=== PATIENT | female | born 1985 | race Caucasian/White ===

== ENCOUNTER 2017-02-05 14:30 | Emergency (ER) | payer OTHER ==
--- NOTE | 2017-02-05 16:07 | ER Document Report ---
ED Medical Screen (RME) - General Chief Complaint: Abdominal Pain Stated Complaint: SEVERE ABDOMINAL PAIN Time Seen by Provider: 02/05/17 16:05 Notes: Patient has bilateral upper abdominal pain with nausea as well as significant coughing for several days. TRAVEL OUTSIDE OF THE [place] IN LAST 30 DAYS: No - Related Data Allergies/Adverse Reactions: Sulfa (Sulfonamide Antibiotics) Allergy (Intermediate, Verified 02/05/17 14:34) rash Iodinated Contrast- Oral and IV Dye [IV Dye, Iodine Containing] Allergy ( Verified 02/05/17 14:34) Past Medical History - Social History Chew tobacco use (# tins/day): No Frequency of alcohol use: Occasional Drug Abuse: None Family history: Reviewed & Not Pertinent Pulmonary Medical History: Reports: Hx Asthma Renal/ Medical History: Denies: Hx Peritoneal Dialysis Psychiatric Medical History: Reports: Hx Anxiety, Hx Depression - anger issues Past Surgical History: Reports: Hx Breast Surgery - implants, Hx Oral Surgery, Hx Tonsillectomy - Immunizations Immunizations up to date: Yes Hx Diphtheria, Pertussis, Tetanus Vaccination: Yes Physical Exam - Vital signs Vitals: Temp Pulse Resp BP Pulse Ox 97.9 F 85 18 117/77 98 02/05/17 14:36 02/05/17 14:36 02/05/17 14:36 02/05/17 14:36 02/05/17 14:36 Course - Vital Signs Vital signs: Temp Pulse Resp BP Pulse Ox 97.9 F 85 18 117/77 98 02/05/17 14:36 02/05/17 14:36 02/05/17 14:36 02/05/17 14:36 02/05/17 14:36
[2017-02-05 16:37] LABS: ABSOLUTE EOSINOPHILS # (AUTO) 0.6 10^3/uL (0.0-0.6); ABSOLUTE MONOCYTES (AUTO) 0.4 10^3/uL (0.1-1.4); ABSOLUTE NEUT (AUTO) 6.6 10^3/uL (1.7-8.2); BASOPHILS % (AUTO) 0.3 % (0-2); EOSINOPHILS % (AUTO) 6.6 % (0-6); HEMATOCRIT 39.1 % (36.0-47.0); HEMOGLOBIN 13.6 g/dL (12.0-15.5); HGB HCT DIFFERENCE 1.7; LYMPHOCYTES % (AUTO) 11.9 % (13-45); MEAN CORPUSCULAR HEMOGLOBIN 31.1 pg (27.0-33.4); MEAN CORPUSCULAR HGB CONC 34.8 g/dL (32.0-36.0); MEAN CORPUSCULAR VOLUME 89 fl (80-97); MONOCYTES % (AUTO) 4.6 % (3-13); RED BLOOD COUNT 4.37 10^6/uL (3.72-5.28); RED CELL DISTRIBUTION WIDTH 12.9 % (11.5-14.0); SEGMENTED NEUTROPHILS % (AUTO) 76.6 % (42-78); WHITE BLOOD COUNT 8.6 10^3/uL (4.0-10.5)
[2017-02-05 16:51] LABS: APPEARANCE,URINE CLEAR; BILIRUBIN,URINE NEGATIVE (NEGATIVE); GLUCOSE, URINE NEGATIVE (NEGATIVE); KETONES,URINE NEGATIVE (NEGATIVE); LEUKOCYTE ESTERASE,URINE NEGATIVE (NEGATIVE); NITRITE,URINE NEGATIVE (NEGATIVE); PROTEIN,URINE NEGATIVE (NEGATIVE); URINE SPECIFIC GRAVITY 1.016; UROBILINOGEN,URINE NEGATIVE mg/dL (<2.0)
[2017-02-05 16:52] LABS: ALANINE AMINOTRANSFERASE 27 U/L (9-52); ALBUMIN 4.5 g/dL (3.5-5.0); ALKALINE PHOSPHATASE 44 U/L (38-126); ANION GAP 13 (5-19); ASPARTATE AMINO TRANSFERASE 19 U/L (14-36); BILIRUBIN,DIRECT 0.3 mg/dL (0.0-0.4); BILIRUBIN,TOTAL 1.2 mg/dL (0.2-1.3); BLOOD UREA NITROGEN 11 mg/dL (7-20); CALCIUM 9.2 mg/dL (8.4-10.2); CARBON DIOXIDE 26 mmol/L (22-30); CHLORIDE 106 mmol/L (98-107); CREATININE RESULT 0.78 mg/dL (0.52-1.25); GLUCOSE 129 mg/dL (75-110); LIPASE 160.1 U/L (23-300); POTASSIUM 3.7 mmol/L (3.6-5.0); SODIUM 144.5 mmol/L (137-145)
--- NOTE | 2017-02-05 17:29 | ER Document Report ---
ED General - General Chief Complaint: Abdominal Pain Stated Complaint: SEVERE ABDOMINAL PAIN Time Seen by Provider: 02/05/17 16:05 TRAVEL OUTSIDE OF THE [place] IN LAST 30 DAYS: No - HPI Notes: Patient is a 31-year-old female with a history of asthma who presents the ED complaining of a dry nonproductive cough 1 month, epigastric abdominal soreness x 1 day. Pt states that she was having n/v yesterday constantly, but that has since resolved. Pt states that she is eating/drinking w/o any difficulties. Pt states that food intake does not alter her symptoms. Pt is currently on several inhalers and PO meds specifically for her asthma. Pt is currently on her menstrual cycle and denies any other vaginal odor/discharge. She is still urinating normally and having normal BM's. Denies any prolonged travel, immobilization, hormone use, smoking, iv drugs, injury, prev dvt/PE, or any cardiac history. Denies any headache, fever, neck pain, URI, sore throat, chest pain, palpitations, syncope, shortness of breath, wheeze, dyspnea, diarrhea, urinary retention, dysuria, hematuria, back pain, joint pains, or rash. - Related Data Allergies/Adverse Reactions: Sulfa (Sulfonamide Antibiotics) Allergy (Intermediate, Verified 02/05/17 14:34) rash Iodinated Contrast- Oral and IV Dye [IV Dye, Iodine Containing] Allergy ( Verified 02/05/17 14:34) Past Medical History - Social History Smoking Status: Never Smoker Chew tobacco use (# tins/day): No Frequency of alcohol use: Occasional Drug Abuse: None Family History: Reviewed & Not Pertinent Patient has suicidal ideation: No Patient has homicidal ideation: No Pulmonary Medical History: Reports: Hx Asthma Renal/ Medical History: Denies: Hx Peritoneal Dialysis Psychiatric Medical History: Reports: Hx Anxiety, Hx Depression - anger issues Past Surgical History: Reports: Hx Breast Surgery - implants, Hx Oral Surgery, Hx Tonsillectomy - Immunizations Immunizations up to date: Yes Hx Diphtheria, Pertussis, Tetanus Vaccination: Yes Review of Systems - Review of Systems Notes: REVIEW OF SYSTEMS: CONSTITUTIONAL : Denies fever, chills, or sweats. see hpi. EENT: Denies eye, ear, throat, or mouth pain or symptoms. Denies nasal or sinus congestion or discharge. Denies throat, tongue, or mouth swelling or difficulty swallowing. CARDIOVASCULAR: Denies chest pain. Denies palpitations or racing or irregular heart beat. Denies ankle edema. RESPIRATORY: see hpi. Denies shortness of breath, difficulty breathing, or wheezing. GASTROINTESTINAL: see hpi. Denies blood in vomitus, stools, or per rectum. Denies black, tarry stools. Denies constipation. GENITOURINARY: Denies difficulty urinating, painful urination, burning, frequency, blood in urine, or discharge. MUSCULOSKELETAL: Denies back or neck pain or stiffness. Denies joint pain or swelling. SKIN: Denies rash, lesions or sores. NEUROLOGICAL: Denies confusion or altered mental status. Denies passing out or loss of consciousness. Denies dizziness or lightheadedness. Denies headache. Denies weakness or paralysis or loss of use of either side. Denies problems with gait or speech. Denies sensory loss, numbness, or tingling. ALL OTHER SYSTEMS REVIEWED AND NEGATIVE. Dictation was performed using [employer] voice recognition software Physical Exam - Vital signs Vitals: Temp Pulse Resp BP Pulse Ox 97.9 F 85 18 117/77 98 02/05/17 14:36 02/05/17 14:36 02/05/17 14:36 02/05/17 14:36 02/05/17 14:36 Notes: PHYSICAL EXAMINATION: GENERAL: Well-appearing, well-nourished and in no acute distress. A&Ox4. Pt pleasant and talkative. HEAD: Atraumatic, normocephalic. EYES: Pupils equal round and reactive to light, extraocular movements intact, sclera anicteric, conjunctiva are normal. ENT: Nares patent and without discharge. oropharynx clear without exudates. No tonsilar hypertrophy or erythema. Moist mucous membranes. No sinus tenderness. NECK: Normal range of motion, supple without lymphadenopathy. No rigidity/ meningismus. LUNGS: Breath sounds clear to auscultation bilaterally and equal. No wheezes rales or rhonchi. HEART: Regular rate and rhythm without murmurs, rubs, gallops. ABDOMEN: Soft, nondistended abdomen. No guarding, no rebound. No masses appreciated. Normal bowel sounds present. No CVA tenderness bilaterally. + mild epigastric tenderness to palp. Zimmerman negative. Musculoskeletal: FROM to passive/active. Strength 5+/5. Extremities: No cyanosis, clubbing, or edema b/l. Peripheral pulses 2+. Capillary refill less than 3 seconds. NEUROLOGICAL: Normal speech, normal gait. Normal sensory, motor exams PSYCH: Normal mood, normal affect. SKIN: Warm, Dry, normal turgor, no rashes or lesions noted. Course - Re-evaluation Re-evalutation: 02/05/17 18:11 Patient is an afebrile, well-hydrated, 31-year-old female who presents the ED with epigastric pain, suspect gastritis versus GERD as well as acute bronchitis. Vitals are stable. PE is otherwise unremarkable. Patient is tolerating p.o. without any difficulties. CBC, CMP, urinalysis, lipase, and was unremarkable for any acute pathology. Chest x-ray and right upper quadrant ultrasound was unremarkable for any acute pathology. Patient has been having a cough for about 1 month now. I will send her home with a pocket prescription of zithromax that she may start if no improvement in 2-3 days. I will also send her home with prescription for Tessalon to help with the cough. GI cocktail given today. I will send her home with a prescription for omeprazole. Conservative measures for symptoms otherwise. Recheck with your PCM in 3-5 days. Consider consult with gastroenterology. Low suspicion for any acute abdomen at this time as well as sepsis, meningitis, respiratory compromise. Return to the ED with any worsening/concerning symptoms otherwise as reviewed in discharge. Patient is in agreement. - Vital Signs Vital signs: Temp Pulse Resp BP Pulse Ox 97.9 F 85 18 117/77 98 02/05/17 14:36 02/05/17 14:36 02/05/17 14:36 02/05/17 14:36 02/05/17 14:36 - Laboratory Result Diagrams: 02/05/17 16:28 02/05/17 16:28 Laboratory results interpreted by me: 02/05/17 02/05/17 02/05/17 16:15 16:28 16:28 Lymphocytes % 11.9 L Eosinophils % 6.6 H Glucose 129 H Urine Blood LARGE H Discharge - Discharge Clinical Impression: Epigastric pain Acute bronchitis Qualifiers: Bronchitis organism: unspecified organism Qualified Code(s): J20.9 - Acute bronchitis, unspecified Condition: Stable Disposition: HOME, SELF-CARE Instructions: Abdominal Pain ([facility]), Evaluation of Upper Abdominal Pain ([facility]), Bronchitis ([facility]), Low-Fat Diet ([facility]), Antinausea Medication ([facility]) Additional Instructions: Maintain adequate fluid and food intake [place] diet ([employer] Bananas, rice, apples, toast, etc Zofran as needed tylenol if needed OTC meds as needed for cold symptoms/cough Monitor for any worsening symptoms Make sure you are staying hydrated enough to urinate and have normal BM's Recheck with your PCM in 3-5 days Consider consult with Gastroenterology for ongoing/worsening symptoms Return to the ED with any worsening symptoms and/or development of fever, headache, chest pain, palpitations, syncope, shortness of breath, trouble breathing, abdominal pain, n/v/d, blood in stool/urine, weakness, or other worsening symptoms that are concerning to you. Prescriptions: Benzonatate [Tessalon Perle 100 mg Capsule] 100 mg PO Q8HP PRN #15 cap PRN Reason: Azithromycin [Zithromax 250 mg Tablet] 250 mg PO ASDIR PRN #6 tablet PRN Reason: Meclizine HCl 25 mg PO TID #15 tablet Omeprazole 20 mg PO DAILY #30 tablet. Referrals: [facility] [Provider Group] - Follow up as needed [facility] [Provider Group] - Follow up as needed NANCY TOM MD [ACTIVE STAFF] - Follow up as needed
--- NOTE | 2017-02-05 18:01 | RADIOLOGY REPORT (SQ) ---
EXAM DESCRIPTION: CHEST PA/LAT COMPLETED DATE/TIME: 02/05/2017 5:53 pm REASON FOR STUDY: cough COMPARISON: 09/21/2012 EXAM PARAMETERS: NUMBER OF VIEWS: two views TECHNIQUE: Digital Frontal and Lateral radiographic views of the chest acquired. RADIATION DOSE: NA LIMITATIONS: none FINDINGS: LUNGS AND PLEURA: No opacities, masses or pneumothorax. No pleural effusion. MEDIASTINUM AND HILAR STRUCTURES: No masses or contour abnormalities. HEART AND VASCULAR STRUCTURES: Heart normal size. No evidence for failure. BONES: No acute findings. HARDWARE: None in the chest. OTHER: No other significant finding. IMPRESSION: NO SIGNIFICANT RADIOGRAPHIC FINDING IN THE CHEST. TECHNICAL DOCUMENTATION: JOB ID: [id number] [employer]- All Rights Reserved
--- NOTE | 2017-02-05 18:05 | RADIOLOGY REPORT (SQ) ---
EXAM DESCRIPTION: U/S ABDOMEN LIMITED W/O DOP COMPLETED DATE/TIME: 02/05/2017 5:47 pm REASON FOR STUDY: epigastric pain COMPARISON: None. TECHNIQUE: Dynamic and static grayscale images acquired of the liver and recorded on PACS. Eliu guadarrama selected color Doppler and spectral images recorded. Selected velocities recorded. LIMITATIONS: None. FINDINGS: LIVER: Normal in echogenicity and size. No focal lesions are seen. LIVER VASCULATURE: Normal directional flow of the main portal vein and hepatic veins. The IVC is pat ent. GALLBLADDER: No stones. Normal wall thickness. No pericholecystic fluid. ULTRASOUND-DETECTED GALDAMEZ'S SIGN: Negative. INTRAHEPATIC DUCTS AND COMMON DUCT: No dilated intrahepatic ducts. CBD diameter normal. ASCITES: None. OTHER: Visualized portion of pancreas unremarkable. No hydronephrosis of the right kidney. IMPRESSION: Nothing acute. No evidence for gallstones. TECHNICAL DOCUMENTATION: JOB ID: [id number] [employer]- All Rights Reserved
[2017-02-05] MEDS ORDERED: METOCLOPRAMIDE HCL ORAL SOLN 10 MG/10 ML UDCUP PO ONE (18:20)
[2017-02-05] MEDS ORDERED: LIDOCAINE 2% VISCOUS SOLN 20 ML UDCUP PO ONE (18:20)
[2017-02-05] MEDS ORDERED: MAG HYDROX/AL HYDROX/SIMETH SUSP 30 ML UDCUP PO ONE (18:20)
[2017-02-05 18:38] VITALS: BP 102/78
== END 2017-02-05 18:38 | disposition home or self-care (01) ==
LOC: ER 14:30
DX: J20.9 Acute bronchitis, unspecified (principal); R10.13 Epigastric pain; Z88.2 Allergy status to sulfonamides
CPT/HCPCS: 99284; 36415; 83690; 85025; 81025; 80053; 81001; 71020; 76705; J3490

== ENCOUNTER 2018-03-16 11:07 | Outpatient (CLI) | payer OTHER ==
[2018-03-16] MEDS ORDERED: HYDROXYZINE PAMOATE 50 MG CAPSULE PO ONE (11:52)
[2018-03-16] MEDS ORDERED: HYDROXYZINE PAMOATE 50 MG CAPSULE ONE (11:57)
[2018-03-16 11:58] LABS: APPEARANCE,URINE SLIGHTLY-CLOUDY; BILIRUBIN,URINE NEGATIVE (NEGATIVE); COLOR,URINE YELLOW; GLUCOSE, URINE NEGATIVE (NEGATIVE); KETONES,URINE NEGATIVE (NEGATIVE); LEUKOCYTE ESTERASE,URINE NEGATIVE (NEGATIVE); NITRITE,URINE NEGATIVE (NEGATIVE); PROTEIN,URINE NEGATIVE (NEGATIVE); UROBILINOGEN,URINE NEGATIVE mg/dL (<2.0)
--- NOTE | 2018-03-16 12:19 | Non Stress Test Report ---
Non Stress Test Datetime Report Generated by CPN: 03/16/2018 12:19 DEMOGRAPHIC EGA NST: 32.6 INDICATION Indication for Study: Ordered by Provider Indication for Study (NST) Other: UC's, pressure MONITORING Monitor Explained: Monitor Explained; Test Explained; Patient Verbalized Understanding Time on Monitor: 03/16/2018 11:28 NST INTERVENTIONS NST Interventions: PO Hydration BABY A: [id number] BABY A Movement : Present Contraction Frequency : irregular FHR Baseline : 140 Accelerations : 15X15 Decelerations : None Variability : Moderate 6-25bpm NST Review and Verified By : H. Myke, RN NST Results: Reactive NST REPORT Report Trigger: Send Report
[2018-03-16 12:21] LABS: URINE AMPHETAMINES SCREEN NEGATIVE; URINE BARBITURATES SCREEN NEGATIVE; URINE BENZODIAZEPINES SCREEN NEGATIVE; URINE COCAINE SCREEN NEGATIVE; URINE MARIJUANA (THC) SCREEN NEGATIVE; URINE METHADONE SCREEN NEGATIVE; URINE PHENCYCLIDINE SCREEN NEGATIVE
== END 2018-03-16 14:43 | disposition home or self-care (01) ==
LOC: LC 11:07
PROVIDERS: ATTEND Student in an Organized Health Care Education/Training Program
PROC: 4A1HXCZ Monitoring of Products of Conception, Cardiac Rate, External Approach (ICD-10-PCS; principal; 2018-03-16)
DX: O47.03 False labor before 37 completed weeks of gestation, third trimester (principal); Z3A.32 32 weeks gestation of pregnancy
CPT/HCPCS: 59025; 80307; 81001

== ENCOUNTER 2018-03-27 09:37 | Outpatient (CLI) | payer OTHER ==
[2018-03-27 10:27] LABS: APPEARANCE,URINE CLEAR; BILIRUBIN,URINE NEGATIVE (NEGATIVE); COLOR,URINE YELLOW; GLUCOSE, URINE NEGATIVE (NEGATIVE); KETONES,URINE NEGATIVE (NEGATIVE); LEUKOCYTE ESTERASE,URINE TRACE (NEGATIVE); NITRITE,URINE NEGATIVE (NEGATIVE); PROTEIN,URINE NEGATIVE (NEGATIVE); URINE SPECIFIC GRAVITY 1.011; UROBILINOGEN,URINE NEGATIVE mg/dL (<2.0)
[2018-03-27 10:44] LABS: URINE AMPHETAMINES SCREEN NEGATIVE; URINE BARBITURATES SCREEN NEGATIVE; URINE BENZODIAZEPINES SCREEN NEGATIVE; URINE COCAINE SCREEN NEGATIVE; URINE MARIJUANA (THC) SCREEN NEGATIVE; URINE METHADONE SCREEN NEGATIVE; URINE PHENCYCLIDINE SCREEN NEGATIVE
--- NOTE | 2018-03-27 11:35 | Non Stress Test Report ---
Non Stress Test Datetime Report Generated by CPN: 03/27/2018 11:35 DEMOGRAPHIC Test Number: 2 EGA NST: 34.5 INDICATION Indication for Study: labor VITAL SIGNS Temperature - NST: 98.2 Pulse - NST: 70 RESP - NST: 16 NBPSYS NST: 119 NBPDIA NST: 70 MONITORING Monitor Explained: Monitor Explained; Test Explained; Patient Verbalized Understanding Time on Monitor: 03/27/2018 09:30 Time off Monitor: 03/27/2018 11:20 NST Duration: 110 NST INTERVENTIONS NST Interventions: PO Hydration; IV Fluids BABY A: [id number] BABY A Movement : Present Contraction Frequency : 2-4 FHR Baseline : 130 Accelerations : 15X15 Decelerations : None Variability : Moderate 6-25bpm NST Review and Verified By : Soledad Gonzalez, RN NST REPORT Report Trigger: Send Report
== END 2018-03-27 11:43 | disposition home or self-care (01) ==
LOC: LC 09:37
PROVIDERS: ATTEND Obstetrics & Gynecology
DX: Z34.90 Encounter for supervision of normal pregnancy, unspecified, unspecified trimester (principal)
CPT/HCPCS: 59025; 80307; 81001

== ENCOUNTER 2018-04-07 15:31 | Outpatient (CLI) | payer OTHER ==
[2018-04-07 16:02] LABS: APPEARANCE,URINE SLIGHTLY-CLOUDY; BILIRUBIN,URINE NEGATIVE (NEGATIVE); COLOR,URINE YELLOW; GLUCOSE, URINE NEGATIVE (NEGATIVE); KETONES,URINE 20 mg/dL (NEGATIVE); LEUKOCYTE ESTERASE,URINE MODERATE (NEGATIVE); NITRITE,URINE NEGATIVE (NEGATIVE); PROTEIN,URINE 30 mg/dL (NEGATIVE); UROBILINOGEN,URINE NEGATIVE mg/dL (<2.0)
[2018-04-07 16:13] LABS: URINE AMPHETAMINES SCREEN NEGATIVE; URINE BARBITURATES SCREEN NEGATIVE; URINE BENZODIAZEPINES SCREEN NEGATIVE; URINE COCAINE SCREEN NEGATIVE; URINE MARIJUANA (THC) SCREEN NEGATIVE; URINE METHADONE SCREEN NEGATIVE; URINE PHENCYCLIDINE SCREEN NEGATIVE
== END 2018-04-07 16:20 | disposition home or self-care (01) ==
LOC: LC 15:31
PROVIDERS: ATTEND Student in an Organized Health Care Education/Training Program
PROC: 4A1HXCZ Monitoring of Products of Conception, Cardiac Rate, External Approach (ICD-10-PCS; principal; 2018-04-07)
DX: O47.03 False labor before 37 completed weeks of gestation, third trimester (principal); Z3A.36 36 weeks gestation of pregnancy
CPT/HCPCS: 59025; 80307; 81001

== ENCOUNTER 2018-04-16 21:44 | Inpatient (IN) | payer OTHER ==
--- NOTE | 2018-04-16 21:49 | Non Stress Test Report ---
Non Stress Test Datetime Report Generated by CPN: 04/16/2018 21:48 DEMOGRAPHIC EGA NST: 36.2 INDICATION Indication for Study: Ordered by Provider MONITORING Time on Monitor: 04/07/2018 15:48 Time off Monitor: 04/07/2018 16:10 NST Duration: 22 NST INTERVENTIONS NST Interventions: PO Hydration Physician Notified NST: K.Faith, CNM BABY A: [id number] BABY A Movement : Present Contraction Frequency : x1 FHR Baseline : 125 Accelerations : 15X15 Decelerations : None Variability : Moderate 6-25bpm NST Review: Meets Criteria for Reactive NST NST Review and Verified By : STEVE Jiménez Results: Reactive NST REPORT Report Trigger: Send Report
[2018-04-16 22:21] LABS: APPEARANCE,URINE CLEAR; BILIRUBIN,URINE NEGATIVE (NEGATIVE); COLOR,URINE COLORLESS; GLUCOSE, URINE NEGATIVE (NEGATIVE); KETONES,URINE NEGATIVE (NEGATIVE); LEUKOCYTE ESTERASE,URINE NEGATIVE (NEGATIVE); NITRITE,URINE NEGATIVE (NEGATIVE); PROTEIN,URINE NEGATIVE (NEGATIVE); URINE SPECIFIC GRAVITY 1.003; UROBILINOGEN,URINE NEGATIVE mg/dL (<2.0)
[2018-04-16 22:42] LABS: URINE AMPHETAMINES SCREEN NEGATIVE; URINE BARBITURATES SCREEN NEGATIVE; URINE BENZODIAZEPINES SCREEN NEGATIVE; URINE COCAINE SCREEN NEGATIVE; URINE MARIJUANA (THC) SCREEN NEGATIVE; URINE METHADONE SCREEN NEGATIVE; URINE PHENCYCLIDINE SCREEN NEGATIVE
[2018-04-17] MEDS ORDERED: LIDOCAINE 1% INJ-PF (10 MG/ML) 30 ML SDV ONE (01:04)
[2018-04-17] MEDS ORDERED: OXYTOCIN 10 UNIT/ML VIAL ONE (01:04)
[2018-04-17] MEDS ORDERED: MISOPROSTOL 0.2 MG TABLET ONE (01:04)
[2018-04-17] MEDS ORDERED: OXYTOCIN/NORMAL SALINE 20 UNIT/1,000 ML RTUINJ ONE (01:04)
[2018-04-17 01:18] LABS: ABSOLUTE BASOPHILS # (AUTO) 0.1 10^3/uL (0.0-0.2); ABSOLUTE EOSINOPHILS # (AUTO) 0.3 10^3/uL (0.0-0.6); ABSOLUTE LYMPHOCYTES (AUTO) 1.5 10^3/uL (0.5-4.7); ABSOLUTE MONOCYTES (AUTO) 0.7 10^3/uL (0.1-1.4); ABSOLUTE NEUT (AUTO) 6.2 10^3/uL (1.7-8.2); BASOPHILS % (AUTO) 0.6 % (0-2); EOSINOPHILS % (AUTO) 3.2 % (0-6); HEMATOCRIT 35.9 % (36.0-47.0); HEMOGLOBIN 12.7 g/dL (12.0-15.5); LYMPHOCYTES % (AUTO) 17.5 % (13-45); MEAN CORPUSCULAR HEMOGLOBIN 33.2 pg (27.0-33.4); MEAN CORPUSCULAR HGB CONC 35.5 g/dL (32.0-36.0); MEAN CORPUSCULAR VOLUME 94 fl (80-97); MONOCYTES % (AUTO) 7.9 % (3-13); PLATELET COUNT 181 10^3/uL (150-450); RED BLOOD COUNT 3.85 10^6/uL (3.72-5.28); RED CELL DISTRIBUTION WIDTH 13.5 % (11.5-14.0); SEGMENTED NEUTROPHILS % (AUTO) 70.8 % (42-78); TOTAL CELLS COUNTED % (AUTO) 100 %; WHITE BLOOD COUNT 8.8 10^3/uL (4.0-10.5)
--- NOTE | 2018-04-17 02:33 | Admission Physical ---
Datetime Report Generated by CPN: 04/17/2018 02:32 CURRENT ADMISSION Chief Complaint: Uterine Contractions Indication for Induction: Not Applicable Admit Impression : Term, Intrauterine ; Active Labor Admit Plan: Admit to Unit; Initiate Labor Protocol ALLERGIES Medication Allergies: Yes Medication Allergies: Iodinated Contrast- Oral and IV Dye (04/16/2018); Sulfa (Sulfonamide Antibiotics)/MO/rash (04/16/2018); aspirin (04/16/2018); ibuprofen (04/16/2018) Latex: No Latex Allergies Food Allergies: red onion OBSTETRICAL HISTORY EDC: 05/03/2018 00:00 : 2 Para: 1 Term: 1 : 0 SAB: 0 IAB: 0 Ectopic: 0 Livin Cesareans: 0 VBACs: 0 Multiple Births: 0 Gestational Diabetes: Yes Rh Sensitization: No Incompetent Cervix: No NOEMI: No Infertility: No ART Treatment: No Uterine Anomaly: No IUGR: No Hx Previous C/S: No Macrosomia: No Hx Loss/Stillborn: No PIH: No Hx : No Placenta Previa/Abruption: No Depression/PP Depression: No PTL/PROM: No Post Hemorrhage: No Current Procedures: Ultrasound Obstetrical History Comments: G1- term G2- current , GDM diet controlled SEE RECORDS Alcohol: No Marijuana : No Cocaine: No Other Illicit Drugs: No Cigarettes: Never Smoker. 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 degenerative disc disease and arthritis in back. INFECTIOUS HISTORY Gonorrhea: No Genital Herpes: No Chlamydia: No Tuberculosis: No Syphilis: No Hepatitis: No HIV/AIDS Exposure: No Rash or Viral Illness: No HPV: No PHYSICAL EXAM General: Normal HEENT: Normal Neurologic: Normal Thyroid: Normal Heart: Normal Lungs: Normal Breast: Deferred Back: Normal Abdomen: Normal Genitourinary Exam: Normal Extremities: Normal DTRs: Normal Pelvic Type: Adequate Vital Signs: Reviewed VAGINAL EXAM Dilatation: 4 Effacement: 50 Station: -2 MEMBRANES Pooling: Negative Membranes: Intact FETUS A EGA: 37.5 Monitoring: External US FHR- Baseline: 120 Variability: Moderate 6-25bpm Decelerations: None FHR Category: Category I Presentation: Vertex Admit Comment: anticipate delivery PLANS FOR LABOR AND DELIVERY Labor and Delivery: None Pain Management: Natural Feeding Preference: Breast Benefit of Breast Feed Discussed: Yes Circumcision: Yes INFORMED CONSENT Signature: with User ID: [email or web address]
[2018-04-17] MEDS ORDERED: ONDANSETRON 4 MG TAB.RAPDIS ONE (03:00)
[2018-04-17] MEDS ORDERED: ONDANSETRON 4 MG TAB.RAPDIS PO ONE (03:01)
[2018-04-17] MEDS ORDERED: ONDANSETRON HCL INJ/PF 4 MG/2 ML SDV ONE (07:21)
--- NOTE | 2018-04-17 08:09 | L&D Progress Notes ---
PROGRESS NOTES Datetime Report Generated by CPN: 04/17/2018 08:09 PROGRESS NOTE Impression: Reassuring Heart Rate Plan: Continue Present Management Informed Consent Obtained: Vaginal Delivery Vital Signs : Reviewed; Within Normal Limits Comment: Cat 1 strip, ruptured, comfortable, does not want epidural VAGINAL EXAM Dilatation: 4 Effacement: 50 Station: -2 LAST VAGINAL EXAM-NURSING Dilitation: 4.0 Dilitation: 5.0 Dilitation: 4.0 Dilitation: 4.0 Dilitation: 2.0 Dilitation: cl Dilitation: closed Dilitation: ft Dilitation: ft Effacement: 80 Effacement: 70 Effacement: 50 Effacement: 50 Effacement: 25 Effacement: th Effacement: 50 Effacement: thick Effacement: thick Station: 0 Station: -2 Station: -2 Station: -2 Station: -1 Station: ballotable Station: ballotable Station: ballotable MEMBRANES Pooling: Negative Membranes: Intact FETUS A Monitoring: External US FHR Category: Category I : 37.0 Presentation: Vertex SIGNATURE SIGNATURE: [id number];[id number];13,[id number] SIGNATURE: [id number];14,[id number] SIGNATURE: 14,[id number] SIGNATURE: 14,[id number] SIGNATURE: 14,[id number] Assignment: Frank Gongora MD Signature: with User ID: [email or web address] : with User ID: [email or web address]
[2018-04-17] MEDS ORDERED: ACETAMINOPHEN 325 MG TABLET ONE (11:19)
[2018-04-17] MEDS ORDERED: PROMETHAZINE HCL 25 MG TABLET PO PRN (11:23)
[2018-04-17] MEDS ORDERED: PROMETHAZINE HCL INJ 25 MG/1 ML VIAL IV PRN (11:23)
[2018-04-17] MEDS ORDERED: DIPH/PERTUSS(ACELL)/TETANUS VAC/PF 0.5 ML SYR (>=10YO) IM PRN (11:23)
[2018-04-17] MEDS ORDERED: DIPHENHYDRAMINE HCL 25 MG CAPSULE PO PRN (11:23)
[2018-04-17] MEDS ORDERED: MEASLES,MUMPS&RUBELLA VACC/PF 0.5 ML VIAL SUBCUT PRN (11:23)
[2018-04-17] MEDS ORDERED: MISOPROSTOL 0.2 MG TABLET PR PRN (11:23)
[2018-04-17] MEDS ORDERED: OXYTOCIN/NORMAL SALINE 20 UNIT/1,000 ML RTUINJ IV PRN (11:23)
[2018-04-17] MEDS ORDERED: MAGNESIUM HYDROXIDE SUSP 30 ML UDCUP PO PRN (11:23)
[2018-04-17] MEDS ORDERED: NA PHOS,M-B/NA PHOS,DI-BA (ADULT) 133 ML ENEMA PR PRN (11:23)
[2018-04-17] MEDS ORDERED: PSEUDOEPHEDRINE HCL 30 MG TABLET PO PRN (11:23)
[2018-04-17] MEDS ORDERED: PROMETHAZINE HCL 25 MG SUPP.RECT PR PRN (11:23)
[2018-04-17] MEDS ORDERED: BENZOCAINE/MENTHOL AEROSOL SPRAY 56 ML TOP PRN (11:23)
[2018-04-17] MEDS ORDERED: DIBUCAINE 1% OINTMENT 28 GM TP PRN (11:23)
[2018-04-17] MEDS ORDERED: ACETAMINOPHEN WITH CODEINE #3 TABLET PO PRN (11:23)
[2018-04-17] MEDS ORDERED: GLYCERIN/WITCH HAZEL LEAF 1 EACH MED..PAD TP PRN (11:23)
[2018-04-17] MEDS ORDERED: ACETAMINOPHEN 650 MG SUPP.RECT PR PRN (11:23)
[2018-04-17] MEDS ORDERED: ACETAMINOPHEN 325 MG TABLET PO PRN (11:26)
--- NOTE | 2018-04-17 13:10 | Delivery Summary ---
Del Sum A-C Datetime Report Generated by CPN: 04/17/2018 13:10 DELIVERY PERSONNEL DELIVERY PERSONNEL: [id number] Delivery Doctor:: Lakesha Wong CNM Nurse Label Printer Certified:: Lakesha Wong CNM Labor and Delivery Nurse:: Sweta Jefferson RNsheep boner Nurse:: KAVON Ndiaye Nursery Nurse:: STEVE Calix/ANGELO: Melinda Galdamez CNA II MATERNAL INFORMATION Delivery Anesthesia: None Medications After Delivery: Pitocin Drip 20 Units/1000ml NSS; Cytotec 600mcg Per Rectum/Vagina Meds After Delivery Comment: Pitocin 20 units in 1000 ml nss open for bolus Maternal Complications: None Provider Comments: viable make from OA to RORY over intact perineum, placed on mothers abd and cord clamped and cut after 2 minutes by father, spont delivery of grossly nl intact placenta, 3 VC, FFFM to heavy,uterine atony, cytotec 600mcg, Pitocin and massage, baby and mom in recovery in stable condition (Annotations: Data stored by N on behalf of user) LABOR SUMMARY EDC: 05/03/2018 00:00 No. Babies in Womb: 1 Attempted: No Labor Anesthesia: None LABOR INFORMATION Reason for Induction: Not Applicable Onset of Labor: 01/14/2019 20:00 Complete Dilatation: 04/17/2018 10:52 Oxytocin: N/A Group B Beta Strep: negative Steroids Given: None Reason Steroids Not Administered: Not Applicable MEMBRANES Membranes Rupture Method: Artificial Rupture of Membranes: 04/17/2018 07:49 Length of Rupture (hr): 3.27 Amniotic Fluid Color: Clear Amniotic Fluid Amount: Small Amniotic Fluid Odor: Normal STAGES OF LABOR Stage 1 hr: -6536 Stage 1 min: -8 Stage 2 hr: 0 Stage 2 min: 13 Stage 3 hr: 0 Stage 3 min: 5 Total Time in Labor hr: -6535 Total Time in Labor min: -50 VAGINAL DELIVERY Episiotomy: None Laceration #1: None Laceration Repair: Not Applicable Sponge Count Correct: N/A Sharps Count Correct: Yes CSECTION DELIVERY Primary Indication: N/A Secondary Indication: N/A CSection Incidence: N/A Labor: N/A Elective: N/A CSection Incision: N/A BABY A INFORMATION Delivery Date/Time: 04/17/2018 11:05 Method of Delivery: Vaginal Born in Route : No : N/A Forceps: N/A Vacuum Extraction: N/A Shoulder Dystocia : No PRESENTATION/POSITION BABY A Presentation: Cephalic Cephalic Presentation: Vertex Vertex Position: Right Occipital Anterior Breech Presentation: N/A PLACENTA INFORMATION BABY A Placenta Delivery Time : 04/17/2018 11:10 Placenta Method of Delivery: Spontaneous Placenta Status: Delivered SCORES BABY A Heart Rate 1 min: >100 bpm Resp Effort 1 min: Good Cry Reflex Irritability 1 min: Cough or Sneeze or Pulls Away Muscle Tone 1 min: Active Motion Color 1 min: Blue/Pale Resuscitation Effort 1 min: Tactile Stimulation SCORE 1 MIN: 8 Heart Rate 5 min: >100 bpm Resp Effort 5 min: Good Cry Reflex Irritability 5 min: Cough or Sneeze or Pulls Away Muscle Tone 5 min: Active Motion Color 5 min: Body [place], Extremities Blue Resuscitation Effort 5 min: N/A SCORE 5 MIN: 9 Resuscitation Effort 10 min: N/A INFANT INFORMATION BABY A Gestational Age at Delivery: 37.5 Gestational Status: Early Term- 37- 38.6 Weeks Outcome : Liveborn Infant Condition : Stable Infant Sex: Male IDENTIFICATION BABY A Infant Verification Date/Time: 04/17/2018 11:35 ID Band Number: [id number] Mother's Name Verified: Yes Infant RN Verifying Infant: B Baidy RN Additional Verifying Personnel: J Field RN WEIGHT/LENGTH BABY A Infant Birthweight (gm): 3277 Weight (lb): 7 Infant Weight (oz): 4 Infant Length (in): 20.00 Length (cm): 50.80 CORD INFORMATION BABY A No. Cord Vessels: 3 Nuchal Cord : N/A Cord Blood Taken: Yes-For Storage (Mom's Blood type +) Suction: None ASSESSMENT BABY A Complications: None Physical Findings at Delivery: Within Normal Limits Infant Respirations: Appears Normal Skin to Skin: Yes Soaker Soda Worker/ALS Called : No Care By: J Field RN Transferred To: Remains with Mother BABY B INFORMATION : N/A
[2018-04-17] MEDS ORDERED: ONDANSETRON HCL INJ/PF 4 MG/2 ML SDV IV ONE (16:00)
[2018-04-17] MEDS: FERROUS SULFATE 325 MG TABLET PO SCH (18:53)
[2018-04-17] MEDS: DOCUSATE SODIUM 100 MG CAPSULE PO SCH (18:53)
[2018-04-17] MEDS: ACETAMINOPHEN WITH CODEINE #3 TABLET PO PRN (20:26)
[2018-04-18] MEDS: FAMOTIDINE 20 MG TABLET PO SCH ×3 (03:05→22:58)
[2018-04-18] MEDS: ACETAMINOPHEN WITH CODEINE #3 TABLET PO PRN ×2 (03:46→22:59)
[2018-04-18 06:40] LABS: HEMATOCRIT 33.2 % (36.0-47.0); HEMOGLOBIN 11.9 g/dL (12.0-15.5); MEAN CORPUSCULAR HEMOGLOBIN 33.2 pg (27.0-33.4); MEAN CORPUSCULAR HGB CONC 35.7 g/dL (32.0-36.0); MEAN CORPUSCULAR VOLUME 93 fl (80-97); PLATELET COUNT 157 10^3/uL (150-450); RED BLOOD COUNT 3.57 10^6/uL (3.72-5.28); RED CELL DISTRIBUTION WIDTH 13.4 % (11.5-14.0); WHITE BLOOD COUNT 8.5 10^3/uL (4.0-10.5)
[2018-04-18] MEDS: FERROUS SULFATE 325 MG TABLET PO SCH ×2 (09:55→18:30)
[2018-04-18] MEDS: SENNOSIDES/DOCUSATE 8.6-50 MG 1 EACH TABLET PO SCH (09:55)
[2018-04-18] MEDS: PRENATAL VITAMIN W DHA CAPSULE PO SCH (09:55)
[2018-04-18] MEDS: DOCUSATE SODIUM 100 MG CAPSULE PO SCH ×2 (09:56→18:30)
[2018-04-18] MEDS ORDERED: ACETAMINOPHEN 325 MG TABLET ONE (11:07)
[2018-04-18] MEDS ORDERED: ACETAMINOPHEN 325 MG TABLET PO PRN (11:59)
--- NOTE | 2018-04-18 14:31 | PDOC PROGRESS REPORT ---
Subjective-OB Progress Note for:: 04/18/18 Subjective: states bleeding is slowing, pain controlled with current meds. denies needs Physical Exam (OB) Vital Signs: Temp Pulse Resp BP Pulse Ox 97.7 F 67 14 108/59 L 100 04/18/18 07:41 04/18/18 07:41 04/18/18 07:41 04/18/18 07:41 04/18/18 07:41 Intake & Output 04/17/18 04/18/18 04/19/18 06:59 06:59 06:59 Intake Total 1000 Balance 1000 Weight 89 kg - Abdomen Description: Soft, Flat Hernia Present: No Fundal Description: Firm, Midline Fundal Height: u/u - u/2 - Abdominal Distension: No distension Tenderness: Nontender - Extremities Lower extremities: Madi's sign - neg Calf: Normal, Nontender Objective-Diagnostic Laboratory: 04/18/18 06:17 04/18/18 06:17 WBC 8.5 RBC 3.57 L Hgb 11.9 L Hct 33.2 L MCV 93 MCH 33.2 MCHC 35.7 RDW 13.4 Plt Count 157 Assessment and Plan(PN) - Assessment and Plan (1) Delivery normal Is this a current diagnosis for this admission?: Yes - Time Spent with Patient Time with patient: Less than 15 minutes Medications reviewed and adjusted accordingly: Yes - Disposition Anticipated Discharge: Home Within: within 24 hours
[2018-04-19] MEDS: ACETAMINOPHEN WITH CODEINE #3 TABLET PO PRN (05:58)
[2018-04-19 08:36] VITALS: BP 116/68
[2018-04-19] MEDS: PRENATAL VITAMIN W DHA CAPSULE PO SCH (09:11)
[2018-04-19] MEDS: FAMOTIDINE 20 MG TABLET PO SCH (09:11)
[2018-04-19] MEDS: FERROUS SULFATE 325 MG TABLET PO SCH (09:11)
[2018-04-19] MEDS: SENNOSIDES/DOCUSATE 8.6-50 MG 1 EACH TABLET PO SCH (09:11)
[2018-04-19] MEDS: DOCUSATE SODIUM 100 MG CAPSULE PO SCH (09:11)
--- NOTE | 2018-04-19 09:42 | PDOC DISCHARGE SUMMARY ---
Final Diagnosis Discharge Date: 04/19/18 - Final Diagnosis (1) Delivery normal Is this a current diagnosis for this admission?: Yes Discharge Data - Discharge Medication Home Medications: Budesonide/Formoterol Fumarate [Symbicort HFA 80-4.5 mcg Inhaler 6.9 gm] 1 puff IH PRN PRN 03/16/18 Fexofenadine HCl [Uma] 1 tab PO DAILY 03/16/18 Fluticasone Propionate [Flonase Nasal [place] 50 Mcg/[place] 16 gm] 2 sprays NASL DAILY 03/16/18 Vit,Calc76/Iron/Folic [Prenatabs Rx Tablet] 1 each PO DAILY 03/16/18 Acetaminophen [Tylenol 325 mg Tablet] 650 mg PO Q4HP PRN tablet 04/19/18 Procedures: NST Intrapartum Procedure(s): Spontaneous Vaginal Delivery - Diagnosis Test Laboratory: Temp Pulse Resp BP Pulse Ox 97.8 F 74 18 116/68 97 04/19/18 08:10 04/19/18 08:10 04/19/18 08:10 04/19/18 08:10 04/19/18 08:10 04/16/18 04/17/18 04/18/18 21:55 01:05 06:17 RBC 3.85 3.57 L Hgb 12.7 11.9 L Hct 35.9 L 33.2 L Urine Opiates Screen NEGATIVE - Discharge information/Instructions Discharge Activity: Balance Activity w/Rest, Pelvic Rest Discharge Diet: Regular Disposition: HOME, SELF-CARE Follow up with: [facility] in: 4, Weeks
== END 2018-04-19 12:13 | disposition home or self-care (01) | DRG 807 ==
LOC: LC 21:44 → LR 04-17 00:51 → 2S 04-17 13:42
PROVIDERS: ADMIT Obstetrics & Gynecology; ATTEND Obstetrics & Gynecology
PROC: 10E0XZZ Delivery of Products of Conception, External Approach (ICD-10-PCS; principal; 2018-04-17)
PROC: 10907ZC Drainage of Amniotic Fluid, Therapeutic from Products of Conception, Via Natural or Artificial Opening (ICD-10-PCS; 2018-04-17)
PROC: 4A1HXCZ Monitoring of Products of Conception, Cardiac Rate, External Approach (ICD-10-PCS; 2018-04-17)
DX: O24.420 Gestational diabetes mellitus in childbirth, diet controlled (principal); Z37.0 Single live birth; Z88.6 Allergy status to analgesic agent; Z91.041 Radiographic dye allergy status; Z88.2 Allergy status to sulfonamides; Z91.018 Allergy to other foods; Z3A.37 37 weeks gestation of pregnancy
CPT/HCPCS: 36415; 80307; 81005; 85025; 85027; 86592; 86850; 86900; 86901; J2405; J2590; J3490; S0119

== ENCOUNTER → 2018-08-11 | Outpatient (CLI) | payer BC ==
--- NOTE | 2018-08-11 16:03 | RADIOLOGY REPORT (SQ) ---
EXAM DESCRIPTION: CT SINUSES FOR ENT COMPLETED DATE/TIME: 08/11/2018 3:35 pm REASON FOR STUDY: J33.9 NASAL POLYP, UNSPECIFIED J33.9 NASAL POLYP, UNSPECIFIED COMPARISON: None. TECHNIQUE: Noncontrast scanning through the paranasal sinuses using bone algorithm. Reconstructed MPR images reviewed. All images stored on PACS. Images acquired for image guided surgery. All CT scanners at this facility use dose modulation, iterative reconstruction, and/or weight based d osing when appropriate to reduce radiation dose to as low as reasonably achievable (ALARA). [facility]: Dose Right [facility]: CareDose [facility]: Dose Right [facility]: Teradose 4D [facility]: 4th aspect RADIATION DOSE: mGy. FINDINGS: The paranasal sinuses are well developed. Near complete opacification of all the maxillar y sinuses. There is thinning of the ethmoids. Nasofrontal recesses and infundibula are opacified. Leftward deviation of the nasal septum. IMPRESSION: Chronic cortes sinusitis. TECHNICAL DOCUMENTATION: JOB ID: [id number] Quality ID # [id number]: Final reports with documentation of one or more dose reduction techniques (e.g., Au tomated exposure control, adjustment of the mA and/or kV according to patient size, use of iterative reconstruction technique) 2010 [employer]- All Rights Reserved Reading location - IP/workstation name: [email or web address]
== END ==
LOC: RAD 15:23
PROVIDERS: ATTEND Otolaryngology
DX: J33.9 Nasal polyp, unspecified (principal)
CPT/HCPCS: 70486

== ENCOUNTER 2018-08-15 10:19 | Emergency (ER) | payer OTHER, BC ==
[2018-08-15] MEDS ORDERED: ONDANSETRON HCL INJ/PF 4 MG/2 ML SDV IV ONE (10:38)
[2018-08-15] MEDS ORDERED: MECLIZINE HCL 25 MG TABLET PO ONE (10:38)
[2018-08-15] MEDS ORDERED: NORMAL SALINE 1000 ML 1,000 ML IV ONE (10:38)
--- NOTE | 2018-08-15 10:39 | ER Document Report ---
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 Patient reports feeling off balance in which she reports is a combination of a rotational sense of movement, feeling lightheaded and off-balance. I have greeted and performed a rapid initial assessment of this patient. A comprehensive ED assessment and evaluation of the patient, analysis of test results and completion of the medical decision making process will be conducted by additional ED providers. TRAVEL OUTSIDE OF THE [place] IN LAST 30 DAYS: No - Related Data Allergies/Adverse Reactions: Sulfa (Sulfonamide Antibiotics) Allergy (Intermediate, Verified 08/15/18 10:20) rash aspirin Allergy (Verified 08/15/18 10:20) ibuprofen Allergy (Verified 08/15/18 10:20) Iodinated Contrast- Oral and IV Dye [IV Dye, Iodine Containing] Allergy (Verified 08/15/18 10:20) Past Medical History - Social History Family history: Reviewed & Not Pertinent Pulmonary Medical History: Reports: Hx Asthma Renal/ Medical History: Denies: Hx Peritoneal Dialysis Psychiatric Medical History: Reports: Hx Anxiety, Hx Depression - anger issues Past Surgical History: Reports: Hx Breast Surgery - implants, Hx Oral Surgery, Hx Tonsillectomy - Immunizations Immunizations up to date: Yes Hx Diphtheria, Pertussis, Tetanus Vaccination: Yes Physical Exam - Vital signs Vitals: Temp Pulse Resp BP Pulse Ox 97.8 F 99 18 106/63 98 08/15/18 10:24 08/15/18 10:24 08/15/18 10:24 08/15/18 10:24 08/15/18 10:24 - Neurological Neuro grossly intact: Yes Orientation: AAOx4 [place] Coma Scale Eye Opening: Spontaneous [place] Coma Scale Verbal: Oriented [place] Coma Scale Motor: Obeys Commands [place] Coma Scale Total: 15 Course - Vital Signs Vital signs: Temp Pulse Resp BP Pulse Ox 97.8 F 99 18 106/63 98 08/15/18 10:24 08/15/18 10:24 08/15/18 10:24 08/15/18 10:24 08/15/18 10:24 Doctor's Discharge - Discharge Referrals: AMBER SCHMIDT MD [Primary Care Provider] - Follow up as needed
--- NOTE | 2018-08-15 11:03 | ER Document Report ---
ED General - General Chief Complaint: Weakness Stated Complaint: DIZZINESS Time Seen by Provider: 08/15/18 10:34 Primary Care Provider: AMBER SCHMIDT MD [Primary Care Provider] - Follow up in 3-5 days Mode of Arrival: Ambulatory Notes: Patient is a 32-year-old female that presents to the emergency department for chief complaint of lightheadedness and dizziness. 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 She denies having a complete syncopal episode. She did have one episode of vomiting. She states she is had chronic history of sinus issues, nasal polyps and has had sinus surgery in the past. Her allergies have been worse more recently as well and she has been more congested. She denies any significant pain, but complains of some pressure in her left ear, denies any recent fevers, chills, night sweats, chest pain, shortness of breath or difficulty breathing. Past Medical History: Chronic sinus issues Past Surgical History: Septoplasty, nasal turbinate reduction Social History: Denies tobacco, alcohol or drug use. Family History: Reviewed and noncontributory for presenting illness Allergies: Reviewed, see documented allergy list. REVIEW OF SYSTEMS: Other than noted above, the 12 point review of systems was reviewed with the patient and were negative, all pertinent findings are included in the HPI. PHYSICAL EXAMINATION: Vital signs reviewed, nursing noted reviewed. GENERAL: Well-appearing, well-nourished and in no acute distress. HEAD: Atraumatic, normocephalic. EYES: Eyes appear normal, extraocular movements intact, sclera anicteric, conjunctiva are normal. ENT: Bilateral nasal polyps noted on the turbinates, oropharynx clear without exudates. Moist mucous membranes. The left TM does have an effusion, without erythema, or significant bulging, right TM appears normal. NECK: Normal range of motion, supple without lymphadenopathy LUNGS: Breath sounds clear to auscultation bilaterally and equal. No wheezes rales or rhonchi. HEART: Regular rate and rhythm without murmurs ABDOMEN: Soft, nontender, normoactive bowel sounds. No rebound, guarding, or rigidity. No masses appreciated. EXTREMITIES: Nontender, good range of motion, no pitting or edema. NEUROLOGICAL: No focal neurological deficits. Moves all extremities spontaneou sly Motor and sensory grossly intact on exam. PSYCH: Normal mood, normal affect. SKIN: Warm, Dry, normal turgor, no rashes or lesions noted on exposed skin TRAVEL OUTSIDE OF THE [place] IN LAST 30 DAYS: No - Related Data Allergies/Adverse Reactions: Sulfa (Sulfonamide Antibiotics) Allergy (Intermediate, Verified 08/15/18 10:20) rash aspirin Allergy (Verified 08/15/18 10:20) ibuprofen Allergy (Verified 08/15/18 10:20) Iodinated Contrast- Oral and IV Dye [IV Dye, Iodine Containing] Allergy (Verified 08/15/18 10:20) Past Medical History - General Information source: Patient - Social History Smoking Status: Never Smoker Chew tobacco use (# tins/day): No Frequency of alcohol use: None Drug Abuse: None Family History: Reviewed & Not Pertinent Patient has suicidal ideation: No Patient has homicidal ideation: No Pulmonary Medical History: Reports: Hx Asthma Renal/ Medical History: Denies: Hx Peritoneal Dialysis Psychiatric Medical History: Reports: Hx Anxiety, Hx Depression - anger issues Past Surgical History: Reports: Hx Breast Surgery - implants, Hx Oral Surgery, Hx Tonsillectomy - Immunizations Immunizations up to date: Yes Hx Diphtheria, Pertussis, Tetanus Vaccination: Yes Physical Exam - Vital signs Vitals: Temp Pulse Resp BP Pulse Ox 97.8 F 99 18 106/63 98 08/15/18 10:24 08/15/18 10:24 08/15/18 10:24 08/15/18 10:24 08/15/18 10:24 Course - Re-evaluation Re-evalutation: Patient seen and examined vital signs reviewed. Laboratory data and/or imaging were ordered as appropriate for the patient's presenting symptoms and complaint, with consideration of any critical or life threatening conditions that may be associated with their obtained history and exam as noted above. Patient was treated with meclizine, IV fluids, Zofran Results were reviewed when available and demonstrated unremarkable work-up, hCG negative The patient was re-evaluated and was stable and much improved Evaluation was most consistent with vertigo, likely BPPV, with possible mild dehydration, advised follow-up with the patient's ENT, and to continue her medication given prescription for meclizine. Results were discussed with the patient at this point, after careful consideration I feel that that patient can be discharged from the emergency department, the patient was educated treatments and reasons to return to the emergency department based on their presumed diagnosis as noted above, they were advised to followup with a primary care physician in 2-3 days. Patient was agreeable to plan of care. *Note is created using voice recognition software and may contain spelling, syntax or grammatical errors. Laboratory 08/15/18 08/15/18 08/15/18 11:42 11:42 11:42 WBC 8.3 RBC 4.58 Hgb 13.9 Hct 39.8 MCV 87 MCH 30.3 MCHC 34.8 RDW 12.7 Plt Count 179 Seg Neutrophils % 83.5 H Lymphocytes % 5.9 L Monocytes % 6.7 Eosinophils % 3.5 Basophils % 0.4 Absolute Neutrophils 6.9 Absolute Lymphocytes 0.5 Absolute Monocytes 0.6 Absolute Eosinophils 0.3 Absolute Basophils 0.0 Sodium 139.4 Potassium 3.7 Chloride 101 Carbon Dioxide 28 Anion Gap 10 BUN 16 Creatinine 0.78 Est GFR ( Amer) > 60 Est GFR (Non-Af Amer) > 60 Glucose 123 H Calcium 9.5 Total Bilirubin 1.2 Direct Bilirubin 0.1 Neonat Total Bilirubin Not Reportable Neonat Direct Bilirubin Not Reportable Neonat Indirect Bili Not Reportable AST 21 ALT 26 Alkaline Phosphatase 61 Total Protein 7.0 Albumin 4.3 Serum HCG, Qual NEGATIVE - Vital Signs Vital signs: Temp Pulse Resp BP Pulse Ox 99.0 F 95 20 110/61 97 08/15/18 13:31 08/15/18 13:31 08/15/18 13:31 08/15/18 13:31 08/15/18 13:31 - Laboratory Result Diagrams: 08/15/18 11:42 08/15/18 11:42 Laboratory results interpreted by me: 08/15/18 08/15/18 11:42 11:42 Seg Neutrophils % 83.5 H Lymphocytes % 5.9 L Glucose 123 H - EKG Interpretation by Me Additional EKG results interpreted by me: EKG demonstrates sinus tachycardia with a ventricular rate of 100 bpm, normal axis, normal intervals, there is T wave inversion, in lead III, nonspecific, no ST elevation. No prior for comparison. Discharge - Discharge Clinical Impression: Dizziness Condition: Stable Disposition: HOME, SELF-CARE Instructions: Vertigo ([facility]) Additional Instructions: Recommend sleeping at a 45 degree angle for the next 3 to 5 days, as this can help with your vertigo symptoms, you may take the meclizine up to 3 times daily, to help with dizziness symptoms, please follow-up with your ENT physician. Prescriptions: RX: Meclizine HCl [Antivert 25 mg Tablet] 25 mg PO TID PRN #14 tablet PRN Reason: Dizziness Forms: Return to Work Referrals: AMBER SCHMIDT MD [Primary Care Provider] - Follow up in 3-5 days
[2018-08-15 11:51] LABS: ABSOLUTE EOSINOPHILS # (AUTO) 0.3 10^3/uL (0.0-0.6); ABSOLUTE LYMPHOCYTES (AUTO) 0.5 10^3/uL (0.5-4.7); ABSOLUTE MONOCYTES (AUTO) 0.6 10^3/uL (0.1-1.4); ABSOLUTE NEUT (AUTO) 6.9 10^3/uL (1.7-8.2); BASOPHILS % (AUTO) 0.4 % (0-2); EOSINOPHILS % (AUTO) 3.5 % (0-6); HEMATOCRIT 39.8 % (36.0-47.0); HEMOGLOBIN 13.9 g/dL (12.0-15.5); LYMPHOCYTES % (AUTO) 5.9 % (13-45); MEAN CORPUSCULAR HEMOGLOBIN 30.3 pg (27.0-33.4); MEAN CORPUSCULAR HGB CONC 34.8 g/dL (32.0-36.0); MEAN CORPUSCULAR VOLUME 87 fl (80-97); MONOCYTES % (AUTO) 6.7 % (3-13); PLATELET COUNT 179 10^3/uL (150-450); RED BLOOD COUNT 4.58 10^6/uL (3.72-5.28); RED CELL DISTRIBUTION WIDTH 12.7 % (11.5-14.0); SEGMENTED NEUTROPHILS % (AUTO) 83.5 % (42-78); TOTAL CELLS COUNTED % (AUTO) 100 %; WHITE BLOOD COUNT 8.3 10^3/uL (4.0-10.5)
[2018-08-15 12:07] LABS: ALANINE AMINOTRANSFERASE 26 U/L (9-52); ALBUMIN 4.3 g/dL (3.5-5.0); ALKALINE PHOSPHATASE 61 U/L (38-126); ANION GAP 10 (5-19); ASPARTATE AMINO TRANSFERASE 21 U/L (14-36); BILIRUBIN,DIRECT 0.1 mg/dL (0.0-0.4); BILIRUBIN,TOTAL 1.2 mg/dL (0.2-1.3); BLOOD UREA NITROGEN 16 mg/dL (7-20); CALCIUM 9.5 mg/dL (8.4-10.2); CARBON DIOXIDE 28 mmol/L (22-30); CHLORIDE 101 mmol/L (98-107); GLUCOSE 123 mg/dL (75-110); POTASSIUM 3.7 mmol/L (3.6-5.0); SODIUM 139.4 mmol/L (137-145)
[2018-08-15 13:32] VITALS: BP 110/61
--- NOTE | 2018-08-15 22:37 | EKG REPORT ---
SEVERITY:- BORDERLINE ECG - SINUS TACHYCARDIA BORDERLINE T ABNORMALITIES, INFERIOR LEADS : Confirmed by: Cassi Fonseca MD 15-Aug-2018 22:36:11
== END 2018-08-15 13:39 | disposition home or self-care (01) ==
LOC: ER 10:19
DX: R53.1 Weakness (principal); R42 Dizziness and giddiness; Z88.6 Allergy status to analgesic agent; Z88.2 Allergy status to sulfonamides
CPT/HCPCS: 93005; 99284; 96361; 96374; 36415; 84703; 85025; 80053; 93010; J2405; J7030

== ENCOUNTER 2018-09-02 08:57 | Day surgery (SDC) | payer BC, OTHER ==
[~2018-09-02 08:57] MED LIST: CEFAZOLIN 2 GM/D5W RTU 2 GM/50 ML RTUPB IV PRN; COCAINE HCL 4% TOPICAL SOLN 4 ML ONE; LIDOCAINE 2%/EPINEPHRINE INJ 1.7 ML CARTRIDGE ONE; OXYMETAZOLINE HCL 0.05% NASAL SPRAY 15 ML BOTTLE ONE; TRIAMCINOLONE ACETONIDE INJ 40 MG/1 ML VIAL ONE
[2018-09-02] MEDS ORDERED: ONDANSETRON HCL INJ/PF 4 MG/2 ML SDV ONE (09:30)
[2018-09-02] MEDS ORDERED: FENTANYL CITRATE INJ/PF 100 MCG/2 ML AMPUL ONE ×2 (09:31→09:32)
[2018-09-02] MEDS ORDERED: SUCCINYLCHOLINE CHLORIDE INJ 200 MG/10 ML VIAL ONE (09:31)
[2018-09-02] MEDS ORDERED: DEXAMETHASONE SOD PHOS INJ 10 MG/1 ML VIAL ONE (09:31)
[2018-09-02] MEDS ORDERED: ROCURONIUM BROMIDE INJ 50 MG/5 ML VIAL IV ONE (09:31)
[2018-09-02] MEDS ORDERED: PROPOFOL INJ 200 MG/20 ML VIAL IV ONE (09:31)
[2018-09-02] MEDS ORDERED: MIDAZOLAM 2 MG/2 ML INJ ONE (09:31)
[2018-09-02] MEDS ORDERED: DIPHENHYDRAMINE HCL 50 MG/ML VIAL ONE (09:32)
[2018-09-02] MEDS ORDERED: LIDOCAINE 2%/EPINEPHRINE INJ 20 ML VIAL ONE (09:38)
[2018-09-02] MEDS ORDERED: SCOPOLAMINE HYDROBROMIDE 1.5 MG PATCH.TD72 TD ONE (09:45)
[2018-09-02] MEDS ORDERED: CEFAZOLIN 1 GM/D5W RTU 0 GM/0 ML RTUPB IV ONE (09:50)
[2018-09-02] MEDS ORDERED: CEFAZOLIN 2 GM/D5W RTU 2 GM/50 ML RTUPB IV PRN (09:57)
[2018-09-02] MEDS ORDERED: LIDOCAINE 2%/EPINEPHRINE INJ 1.7 ML CARTRIDGE ONE (10:17)
--- NOTE | 2018-09-02 12:59 | [facility] OPERATIVE REPORT E ---
[facility] Operative Report NAME: SARITHA RUSSELL AGE: 32Y DATE OF SURGERY: 09/02/2018 ROOM: HISTORY: A 32-year-old female with a history of nasal polyps and Samter's Triad. She presents today for an endoscopic sinus surgery and nasal polypectomy. Informed consent was obtained from the patient. PREOPERATIVE DIAGNOSES: 1. NASAL POLYPOSIS. 2. CHRONIC SINUSITIS. 3. SAMTER'S TRIAD. 4. REACTIVE AIRWAY DISEASE. POSTOPERATIVE DIAGNOSES: 1. NASAL POLYPOSIS. 2. CHRONIC SINUSITIS. 3. SAMTER'S TRIAD. 4. REACTIVE AIRWAY DISEASE. OPERATION: 1. BILATERAL NASAL ENDOSCOPY. 2. RIGHT NASAL POLYPECTOMY. 3. LEFT NASAL POLYPECTOMY. 4. RIGHT MAXILLARY ANTROSTOMY. 5. LEFT MAXILLARY ANTROSTOMY. 6. RIGHT ANTERIOR ETHMOIDECTOMY. 7. LEFT ANTERIOR ETHMOIDECTOMY. 8. PLACEMENT SINUVA STENTS IN THE MIDDLE MEATUS BILATERALLY. SURGEON: AMBER SCHMIDT MD ANESTHESIA: General by endotracheal intubation. PROCEDURE: After receiving informed consent from the patient, she was taken to the operating room and placed supine on the operating room table. After successful induction and intubation by Anesthesia, pledgets soaked with 4% cocaine placed into each nasal cavity for approximately 5 minutes, after which time they were withdrawn. Then, the nasal septum along with the inferior turbinates and nasal polyps were injected with 2% Xylocaine with [id number] epinephrine. The image guidance system was calibrated to the patient and found to be functioning normally. Next, the patient was then prepped and draped in sterile fashion. Pledgets were removed from the left nasal cavity. The endoscope was placed and the polyps were identified. Using a microdebrider, a polypectomy was performed. We then used the trackable olive tip suction to gain entrance into the maxillary sinus, where there was polypoid degeneration of the maxillary sinus mucosa. The antrosomy was widened in an inferior and posterior direction. An anterior ethmoidectomy was also performed using the microdebrider. A pledget was then placed into the middle meatus and attention was then directed to the left side, where in a similar fashion, nasal polypectomy along with a maxillary antrostomy and anterior ethmoidectomy were performed. After the procedure was completed, the Sinuva stent was then placed into the middle meatus bilaterally, and then a small amount of absorbable packing was also placed into the middle meatus. The patient was then given back to Anesthesia, who successfully extubated the patient without any complications. Estimated blood loss was about 200 mL. Fluids: 1200 mL crystalloid. The patient was then transferred to the post anesthesia care unit in stable condition with spontaneous respiration. No complications. DICTATING PHYSICIAN: AMBER SCHMIDT M.D. [id number] PHY#: [id number] ID: [id number] JOB#: [id number] ACCT: [id number] cc:AMBER SCHMIDT MD > MTDD
[2018-09-02] MEDS ORDERED: PROMETHAZINE HCL INJ 25 MG/1 ML VIAL ONE (13:08)
[2018-09-02] MEDS ORDERED: OXYCODONE-ACETAMINOPHEN 5-325 MG TABLET ONE (13:38)
== END 2018-09-02 15:22 | disposition home or self-care (01) ==
LOC: SC 08:57
PROVIDERS: ATTEND Otolaryngology
DX: J33.9 Nasal polyp, unspecified (principal); J32.4 Chronic pansinusitis; J30.9 Allergic rhinitis, unspecified; J45.909 Unspecified asthma, uncomplicated; J98.8 Other specified respiratory disorders
CPT/HCPCS: 31237; 31256; 31254; 88305 ×2; C1751; J2250; J3490 ×5; J1200; J3010; J2550; J0330; J2405; J2704; J1100; J0690; 160; J3301

== ENCOUNTER → 2019-03-26 | Outpatient (CLI) | payer OTHER ==
--- NOTE | 2019-03-26 11:17 | RADIOLOGY REPORT (SQ) ---
EXAM DESCRIPTION: CT SINUSES FOR ENT COMPLETED DATE/TIME: 03/26/2019 11:01 am REASON FOR STUDY: ALLERGIC RHINITIS, UNSPECIFIED J30.9 ALLERGIC RHINITIS, UNSPECIFIED COMPARISON: None. TECHNIQUE: Noncontrast scanning through the paranasal sinuses using bone algorithm. Reconstructed MPR images reviewed. All images stored on PACS. All CT scanners at this facility use dose modulation, iterative reconstruction, and/or weight based d osing when appropriate to reduce radiation dose to as low as reasonably achievable (ALARA). [facility]: Dose Right [facility]: CareDose [facility]: Dose Right [facility]: Teradose 4D [facility]: [employer] RADIATION DOSE: 48mGy. LIMITATIONS: None. FINDINGS: Right sinuses and drainage pathways: Post-surgical changes: Small right middle turbinate, likely partially resected Frontal sinus: Opacified with hyperdense secretions Frontoethmoidal Recess: Opacified Anterior Ethmoid Sinuses: Opacified with hyperdense secretions Posterior Ethmoid Sinuses: Opacified with hyperdense secretions Sphenoid Sinus: Circumferential mucous membrane thickening with air-fluid level Sphenoethmoidal Recess: Opacified Maxillary Sinus: Opacified with hyperdense secretions Ostiomeatal Complex: Opacified Left Sinuses and Drainage Pathways: Post-surgical changes: Surgically absent left middle turbinate Frontal sinus: Opacified with hyperdense secretions Frontoethmoidal Recess: Opacified Anterior Ethmoid Sinuses: Opacified with hyperdense secretions Posterior Ethmoid Sinuses: Opacified with hyperdense secretions Sphenoid Sinus: Opacified with hyperdense secretions Sphenoethmoidal Recess: Opacified Maxillary Sinus: Opacified with hyperdense secretions Ostiomeatal Complex: Opacified Right Olfactory Fossa: No polyps. Left Olfactory Fossa: No polyps. Middle Turbinate Giovanna Bullosa: No. Paradoxical Middle Turbinate: No. Atelectatic Uncinated Process: No. Frontal Rocio Cell Type I: No. Frontal Rocio Cell Type II: No. Interfrontal Sinus Septal Cell: None. Supra-Orbital Ethmoid: None. Frontal Bullar Cell: None. Suprabullar Bullar Cell: None. Sphenoethmoidal (Onodi) Cell: None. Pneumatization of the Anterior Clinoid Processes: No Hypoplastic Maxillary Sinus: None. Osteoneogenesis: None. Bone Dehiscence:None. Nasal Cavity: Normal. Nasal Septum: Midline Anatomic Variants: Right Vidian Canal: Normal. Left V[place] Canal: Normal. IMPRESSION: Chronic pansinusitis with retained hyperdense secretions throughout the sinuses. TECHNICAL DOCUMENTATION: JOB ID: [id number] Quality ID # [id number]: Final reports with documentation of one or more dose reduction techniques (e.g., Au tomated exposure control, adjustment of the mA and/or kV according to patient size, use of iterative reconstruction technique) 2010 [employer]- All Rights Reserved Reading location - IP/workstation name: [email or web address]
== END ==
LOC: RAD 10:47
PROVIDERS: ATTEND Otolaryngology
DX: J30.9 Allergic rhinitis, unspecified (principal)
CPT/HCPCS: 70486

== ENCOUNTER 2019-04-28 08:29 | Day surgery (SDC) | payer OTHER ==
[~2019-04-28 08:29] MED LIST changes: +CARBOXYMETHYLCELLULOSE SOD 0.5% 0.4 ML DROPERETTE ONE; +CEFAZOLIN SODIUM 2 GM in DEXTROSE 5%-WATER 100 ML IV PRN; -COCAINE HCL 4% TOPICAL SOLN 4 ML ONE; +DEXAMETHASONE SOD PHOS INJ 10 MG/1 ML VIAL ONE; +DIPHENHYDRAMINE HCL 50 MG/ML VIAL ONE; +FENTANYL CITRATE INJ/PF 100 MCG/2 ML AMPUL ONE; +LACTATED RINGERS 1000 ML IV PRN; +LIDOCAINE 0.5% INJ-PF (5 MG/ML) 50 ML SDV SUBCUT PRN; -LIDOCAINE 2%/EPINEPHRINE INJ 1.7 ML CARTRIDGE ONE; +MIDAZOLAM 2 MG/2 ML INJ ONE; +ONDANSETRON HCL INJ/PF 4 MG/2 ML SDV ONE; -OXYMETAZOLINE HCL 0.05% NASAL SPRAY 15 ML BOTTLE ONE; +PROPOFOL INJ 200 MG/20 ML VIAL IV ONE; +ROCURONIUM BROMIDE INJ 50 MG/5 ML VIAL IV ONE; +SUCCINYLCHOLINE CHLORIDE INJ 200 MG/10 ML VIAL ONE; -TRIAMCINOLONE ACETONIDE INJ 40 MG/1 ML VIAL ONE
[2019-04-28] MEDS ORDERED: BACITRACIN ZINC OINTMENT 15 GM ONE (09:11)
[2019-04-28] MEDS ORDERED: COCAINE HCL 4% TOPICAL SOLN 4 ML ONE (09:12)
[2019-04-28] MEDS ORDERED: TRIAMCINOLONE ACETONIDE INJ 40 MG/1 ML VIAL ONE (09:12)
[2019-04-28] MEDS ORDERED: LIDOCAINE 2%/EPINEPHRINE INJ 1.7 ML CARTRIDGE ONE (09:12)
[2019-04-28] MEDS ORDERED: OXYMETAZOLINE HCL 0.05% NASAL SPRAY 15 ML BOTTLE ONE (09:12)
[2019-04-28] MEDS ORDERED: PROPOFOL INJ 200 MG/20 ML VIAL IV ONE (09:13)
[2019-04-28] MEDS ORDERED: SCOPOLAMINE HYDROBROMIDE 1.5 MG PATCH.TD72 TD PRN (09:13)
[2019-04-28] MEDS ORDERED: DEXMEDETOMIDINE INJ 80 MCG/20 ML VIAL IV ONE (09:48)
--- NOTE | 2019-04-28 11:38 | Operative Report ---
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 His goal exam reveals nasal polyposis and this is confirmed CT scan. Patient presents today for a endoscopic sinus surgery and nasal polypectomy with placement of Sinuva stents. Informed consent was obtained from the patient. Preoperative Diagnosis: 1. Nasal Polyposis 2. 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 Rigid Nasal Endoscopy bilateral 2. Revision maxillary antrostomy, right side 3. Revision maxillary antrostomy, left side 4. Frontal sinusotomy, right side 5. Frontal sinusotomy, left side 6. Revision ethmoidectomy, right side 7. Revision ethmoidectomy, left side 8. Nasal polypectomy, right side 9. Nasal polypectomy, left side 10. Placement of Sinuva stents, bilateral Anesthesia: GETA Description of the procedure: After receiving informed consent, the patient was taken to the operating room and placed supine on the operating room table. After successful reduction and intubation by anesthesia, cottonoids saturated with 4% cocaine were placed into each nasal cavity for approximately 5 minutes. The cottonoids were withdrawn and the nasal septum, middle turbinate and nasal polyps were injected with 2% Xylocaine with 100,000 epinephrine. The cottonoids were replaced. The image guidance system was calibrated to the patient and found to be functioning normally. The patient was then prepped and draped in a sterile fashion. The image guidance instrumentation was also calibrated to the system and found to be functioning. Cottonoids were removed from the left side. Rigid nasal endoscope was inserted into the nasal cavity and the polyps and lateral nasal wall were injected with 2% Xylocaine 100,000 epinephrine. The microdebrider was used to perform the nasal polypectomy. The polyps extended to the nasofrontal recess, ethmoid bowl and maxillary sinus. Frontal sinusotomy was performed. Polyps were also removed from the ethmoid bowl and ethmoid air cells were removed using Blakesley forceps. The maxillary antrostomy was widened in a inferior and posterior direction. Using the vortex irrigation system, the maxillary sinus was irrigated with copious amounts of normal saline. The mucosa within the maxillary sinus revealed a polypoid degeneration. An Afrin saturated cottonoid was placed into the middle meatus. Attention was then directed to the right side where a similar procedure was performed using the microdebrider for a nasal polypectomy, frontal sinusotomy and ethmoidectomy. The maxillary antrostomy was also widened in a posterior and inferior direction using a microdebrider. Polypoid degeneration of the maxillary sinus mucosa was noted. The vortex system was used to irrigate the maxillary sinus. An Afrin-soaked c otton was placed into the middle meatus. The polyps extended to the nasofrontal recess, ethmoid bowl and maxillary sinus. The cottonoid was removed from the middle meatus and keeping the middle turb inate medialized, a Sinuva stent was placed into the left middle meatus long with an absorbable packing. A similar procedure was performed on the right side. The patient was then given back to anesthesia who successfully extubated the patient without any complications. Estimated blood loss: 30 mL Fluids: 800 mL The patient was then transported to the post anesthesia care unit in stable condition with spontaneous respirations. No complications.
[2019-04-28] MEDS: FENTANYL CITRATE INJ/PF 100 MCG/2 ML AMPUL ONE ×2 (12:32→12:37)
[2019-04-28] MEDS ORDERED: OXYCODONE-ACETAMINOPHEN 5-325 MG TABLET ONE (12:53)
== END 2019-04-28 14:25 | disposition home or self-care (01) ==
LOC: SC 08:29
PROVIDERS: ATTEND Otolaryngology
DX: J33.9 Nasal polyp, unspecified (principal); J32.4 Chronic pansinusitis; J33.8 Other polyp of sinus; J45.909 Unspecified asthma, uncomplicated; Z88.6 Allergy status to analgesic agent; Z79.51 Long term (current) use of inhaled steroids; Z79.899 Other long term (current) drug therapy; J34.2 Deviated nasal septum; J98.8 Other specified respiratory disorders; J33.1 Polypoid sinus degeneration; J32.0 Chronic maxillary sinusitis; E66.9 Obesity, unspecified; Z87.891 Personal history of nicotine dependence
CPT/HCPCS: 88305 ×2; 88312 ×2; 31256; 31276; 31255; 31237; 11981; C1751; J2250; J3490 ×6; J0690 ×2; J1200; J3010; J0330; J2405; J3301; J7060; J2704; J1100; 142

== ENCOUNTER 2020-03-24 09:58 | Emergency (ER) | payer OTHER ==
[2020-03-24] MEDS ORDERED: HYDROCODONE/ACETAMINOPHEN 5-325 MG TABLET PO ONE (10:48)
--- NOTE | 2020-03-24 10:51 | ER Document Report ---
ED Medical Screen (RME) - General Chief Complaint: Low Back Pain Stated Complaint: BACK PAIN Time Seen by Provider: 03/24/20 10:43 Primary Care Provider: LEANNA POLANCO PA [Primary Care Provider] - Follow up as needed TRAVEL OUTSIDE OF THE [place] IN LAST 30 DAYS: No - HPI Notes: 03/24/20 10:49 34-year-old female presents to ED for evaluation of left-sided back pain starting suddenly this morning. Patient reports it is worse in the lower extremities when she ambulates. Notes a history of degenerative disc disease however reports that it is more lateral from her spine on the left side and over her kidney. Denies urinary complaints. Patient states that she has increased pain with ambulation. Denies trauma or injury. Does do heavy lifting at work. Reports no heavy lifting recently. - Related Data Allergies/Adverse Reactions: Sulfa (Sulfonamide Antibiotics) Allergy (Intermediate, Verified 03/24/20 10:43) rash aspirin Allergy (Verified 03/24/20 10:43) ibuprofen Allergy (Verified 03/24/20 10:43) Iodinated Contrast Media [IV Dye, Iodine Containing] Allergy (Verified 03/24/20 10:43) Home Medications: fexofenadine, pnv, phentermine, advair, singulair, flonase Past Medical History - Social History Chew tobacco use (# tins/day): No Frequency of alcohol use: None Drug Abuse: None Family history: Reviewed & Not Pertinent - Past Medical History Cardiac Medical History: Denies: Hx Heart Attack, Hx Hypertension Pulmonary Medical History: Reports: Hx Asthma Neurological Medical History: Denies: Hx Cerebrovascular Accident, Hx Seizures Renal/ Medical History: Denies: Hx Peritoneal Dialysis GI Medical History: Denies: Hx Hepatitis, Hx Hiatal Hernia, Hx Ulcer Psychiatric Medical History: Reports: Hx Anxiety, Hx Depression - anger issues Infectious Medical History: Denies: Hx Hepatitis Past Surgical History: Reports: Hx Breast Surgery - augmentation, Hx Oral Surgery, Hx Tonsillectomy - adenoids. Denies: Hx Hysterectomy, Hx Mastectomy, Hx Open Heart Surgery, Hx Pacemaker - Immunizations Immunizations up to date: Yes Hx Diphtheria, Pertussis, Tetanus Vaccination: Yes Physical Exam - Vital signs Vitals: Temp Pulse Resp BP Pulse Ox 97.3 F 100 18 118/77 98 03/24/20 10:03 03/24/20 10:03 03/24/20 10:03 03/24/20 10:03 03/24/20 10:03 General: No acute distress. Alert and oriented x3. Sitting comfortably in a stretcher. Heart: Regular rate and rhythm. S1,S2. No murmurs, rubs, or gallops. Lungs: Clear to ausculation bilaterally. No wheezes, rhonchi, rales. Equal chest expansion. No retractions. Abdomen: Soft, nontender to palpation, nondistended. Positive bowel sounds in all 4 quadrants. No hepatosplenomegaly. No masses. No CVA tenderness bilaterally. Neuro: GCS 15. Moving all extremities without discomfort. Back: No spinal tenderness. Left paraspinal tenderness. Pain with ROM. Extremities: No calf tenderness or edema. No cyanosis or clubbing. Radial and pedal pulses 2+ bilaterally. Brisk capillary refill. Pain with ROM of the bilateral lower extremities with positive bilateral straight leg raise. Psych: Mood and affect appropriate. Course - Vital Signs Vital signs: Temp Pulse Resp BP Pulse Ox 97.3 F 100 18 118/77 98 03/24/20 10:03 03/24/20 10:03 03/24/20 10:03 03/24/20 10:03 03/24/20 10:03 Doctor's Discharge - Discharge Referrals: LEANNA POLANCO PA [Primary Care Provider] - Follow up as needed
[2020-03-24 11:28] LABS: APPEARANCE,URINE CLEAR; BILIRUBIN,URINE NEGATIVE (NEGATIVE); COLOR,URINE STRAW; GLUCOSE, URINE NEGATIVE (NEGATIVE); KETONES,URINE NEGATIVE (NEGATIVE); LEUKOCYTE ESTERASE,URINE MODERATE (NEGATIVE); NITRITE,URINE NEGATIVE (NEGATIVE); PROTEIN,URINE NEGATIVE (NEGATIVE); URINE SPECIFIC GRAVITY 1.005; UROBILINOGEN,URINE NEGATIVE mg/dL (<2.0)
--- NOTE | 2020-03-24 11:40 | RADIOLOGY REPORT (SQ) ---
EXAM DESCRIPTION: U/S RETROPERITON (RENAL/AORTA) IMAGES COMPLETED DATE/TIME: 03/24/2020 11:28 am REASON FOR STUDY: kidney stones COMPARISON: None. TECHNIQUE: Dynamic and static grayscale images acquired of the kidneys and bladder and recorded on P ACS. Additional selected color Doppler and spectral images recorded. LIMITATIONS: None. FINDINGS: RIGHT KIDNEY: Normal size. Normal echogenicity. No solid or suspicious masses. No hydronep hrosis. No calcifications. LEFT KIDNEY: Normal size. Normal echogenicity. No solid or suspicious masses. No hydronephrosis. No calcifications. BLADDER: No masses. OTHER FINDINGS: No other significant finding. IMPRESSION: NORMAL RENAL AND BLADDER ULTRASOUND. TECHNICAL DOCUMENTATION: JOB ID: [id number] 2010 [employer] All Rights Reserved Reading location - IP/workstation name: [email or web address]
--- NOTE | 2020-03-24 13:30 | ER Document Report ---
ED General - General Chief Complaint: Low Back Pain Stated Complaint: BACK PAIN Time Seen by Provider: 03/24/20 10:43 Primary Care Provider: [facility] [Provider Group] - 03/28/20 Notes: Patient is a 34-year-old female that comes emergency department for chief complaint of left-sided back pain that started this morning. She reports she has a lot of pain with movement, position changes, and walking. She states that she has a history of degenerative changes in her back, she works as a surgical specialist, she states she has frequent back pain. She denies that this is significantly different from occasional flareups. She denies vaginal bleeding or discharge, nausea or vomiting, fever or chills. She denies injury, focal numbness or weakness, urinary changes or complaints. She denies IV drug abuse. TRAVEL OUTSIDE OF THE [place] IN LAST 30 DAYS: No - Related Data Allergies/Adverse Reactions: Sulfa (Sulfonamide Antibiotics) Allergy (Intermediate, Verified 03/24/20 10:43) rash aspirin Allergy (Verified 03/24/20 10:43) ibuprofen Allergy (Verified 03/24/20 10:43) Iodinated Contrast Media [IV Dye, Iodine Containing] Allergy (Verified 03/24/20 10:43) Home Medications: fexofenadine, pnv, phentermine, advair, singulair, flonase Past Medical History - General Information source: Patient - Social History Smoking Status: Never Smoker Chew tobacco use (# tins/day): No Frequency of alcohol use: None Drug Abuse: None Lives with: Family Family History: Reviewed & Not Pertinent Patient has homicidal ideation: No - Past Medical History Cardiac Medical History: Denies: Hx Heart Attack, Hx Hypertension Pulmonary Medical History: Reports: Hx Asthma Neurological Medical History: Denies: Hx Cerebrovascular Accident, Hx Seizures Renal/ Medical History: Denies: Hx Peritoneal Dialysis GI Medical History: Denies: Hx Hepatitis, Hx Hiatal Hernia, Hx Ulcer Psychiatric Medical History: Reports: Hx Anxiety, Hx Depression - anger issues Infectious Medical History: Denies: Hx Hepatitis Past Surgical History: Reports: Hx Breast Surgery - augmentation, Hx Oral Surgery, Hx Tonsillectomy - adenoids. Denies: Hx Hysterectomy, Hx Mastectomy, Hx Open Heart Surgery, Hx Pacemaker - Immunizations Immunizations up to date: Yes Hx Diphtheria, Pertussis, Tetanus Vaccination: Yes Review of Systems - Review of Systems Constitutional: No symptoms reported EENT: No symptoms reported Cardiovascular: No symptoms reported Respiratory: No symptoms reported Gastrointestinal: No symptoms reported Genitourinary: See HPI Female Genitourinary: No symptoms reported Musculoskeletal: See HPI Skin: No symptoms reported Hematologic/Lymphatic: No symptoms reported Neurological/Psychological: No symptoms reported Physical Exam - Vital signs Vitals: Temp Pulse Resp BP Pulse Ox 97.3 F 100 18 118/77 98 03/24/20 10:03 03/24/20 10:03 03/24/20 10:03 03/24/20 10:03 03/24/20 10:03 - Notes Notes: GENERAL: Patient lying on her side, crying, although does not appear to be in severe distress to her blood pressure 7/68 HEAD: Normocephalic, atraumatic. EYES: Pupils equal, round, and reactive to light. Extraocular movements intact. ENT: Oral mucosa moist, tongue midline. Oropharynx unremarkable. Airway patent. NECK: Full range of motion. Supple. Trachea midline. No lymphadenopathy. LUNGS: Clear to auscultation bilaterally, no wheezes, rales, or rhonchi. No respiratory distress. Non-tender chest wall. HEART: Regular rate and rhythm. No murmur ABDOMEN: Soft, non-tender. Non-distended. EXTREMITIES: Moves all 4 extremities spontaneously. No edema, normal radial and dorsalis pedis pulses bilaterally. No cyanosis. BACK: There is tenderness along the left paraspinal muscles along the lumbar area on the left. No signs of trauma. No cervical, thoracic, lumbar midline tenderness. No saddle anesthesia, normal distal neurovascular exam. Moves all extremities in full range of motion. NEUROLOGICAL: Alert and oriented x3. Normal speech. Cranial nerves II through XII grossly intact. Strength 5/5 in all extremities. PSYCH: Anxious and tearful SKIN: Warm, dry, normal turgor. No rashes or lesions noted. Course - Re-evaluation Re-evalutation: Patient very anxious, crying, crying out with movement of her back. There is some questionable tenderness along the paralumbar musculature on the left but no trauma, no neurologic deficits, unremarkable vital signs. Urinalysis shows infection and positive test. Patient was very surprised and then very excited about this. CBC unremarkable, chemistry unremarkable, hCG is in the 200s. Patient did not report vital did not report vaginal bleeding. No abdominal pain. On reevaluation patient sitting up without any obvious difficulty with her back. I discussed findings in detail. I recommended closed hCG follow-up, [employer] follow-up, discussed treatment of her back, we will treat her for UTI as well. Discussed return precautions. Patient states appreciation and agreement. Stable and well-appearing at time of discharge. - Vital Signs Vital signs: Temp Pulse Resp BP Pulse Ox 97.1 F 77 14 124/78 100 03/24/20 16:21 03/24/20 16:21 03/24/20 16:21 03/24/20 16:21 03/24/20 16:21 - Laboratory Results Result Diagrams: 03/24/20 14:15 03/24/20 14:15 Laboratory Results Interpreted: 03/24/20 03/24/20 03/24/20 11:01 14:15 14:15 Eos % (Auto) 7.1 H Beta HCG, Quant 231.36 H Urine Blood MODERATE H Ur Leukocyte Esterase MODERATE H Urine HCG, Qual POSITIVE H Critical Laboratory Results Reviewed: No Critical Results - Radiology Results Critical Radiology Results Reviewed: No Critical Results Discharge - Discharge Clinical Impression: Flank pain Condition: Stable Disposition: HOME, SELF-CARE Additional Instructions: You are . Based on your hormone this is a early . This can be trended by getting your hCG repeated in about 3 days as we discussed. Follow-up with [employer] DRIVER referral or your personal provider. Your urine indicates an infection, take the Keflex antibiotics as prescribed. Apply heat over the area of your back, take Tylenol as needed for pain. Drink plenty of fluids. You remaining work-up does not show any concerning findings. Return if you worsen including severe pain, vomiting, bleeding vaginally, fever, or any other concerning symptoms. Prescriptions: Cephalexin Monohydrate [Keflex 500 mg Capsule] 500 mg PO BID 7 Days #14 capsule Forms: Return to Work Referrals: [facility] [Provider Group] - 03/28/20
[2020-03-24] MEDS ORDERED: ACETAMINOPHEN 325 MG TABLET PO ONE (13:56)
[2020-03-24] MEDS ORDERED: CYCLOBENZAPRINE HCL 10 MG TABLET PO ONE (13:56)
[2020-03-24 14:49] LABS: ABSOLUTE EOSINOPHILS # (AUTO) 0.4 10^3/uL (0.0-0.6); ABSOLUTE LYMPHOCYTES (AUTO) 1.4 10^3/uL (0.5-4.7); ABSOLUTE MONOCYTES (AUTO) 0.4 10^3/uL (0.1-1.4); ABSOLUTE NEUT (AUTO) 3.2 10^3/uL (1.7-8.2); BASOPHILS % (AUTO) 0.5 % (0-2); EOSINOPHILS % (AUTO) 7.1 % (0-6); HEMATOCRIT 41.2 % (36.0-47.0); HEMOGLOBIN 13.9 g/dL (12.0-15.5); MEAN CORPUSCULAR HEMOGLOBIN 29.8 pg (27.0-33.4); MEAN CORPUSCULAR HGB CONC 33.6 g/dL (32.0-36.0); MEAN CORPUSCULAR VOLUME 89 fl (80-97); MONOCYTES % (AUTO) 7.6 % (3-13); PLATELET COUNT 260 10^3/uL (150-450); RED BLOOD COUNT 4.65 10^6/uL (3.72-5.28); RED CELL DISTRIBUTION WIDTH 13.4 % (11.5-14.0); SEGMENTED NEUTROPHILS % (AUTO) 58.8 % (42-78); TOTAL CELLS COUNTED % (AUTO) 100 %; WHITE BLOOD COUNT 5.5 10^3/uL (4.0-10.5)
[2020-03-24 15:11] LABS: ALBUMIN 4.5 g/dL (3.5-5.0); ALKALINE PHOSPHATASE 45 U/L (38-126); ANION GAP 9 (5-19); ASPARTATE AMINO TRANSFERASE 23 U/L (14-36); BLOOD UREA NITROGEN 10 mg/dL (7-20); CALCIUM 10.1 mg/dL (8.4-10.2); CARBON DIOXIDE 25 mmol/L (22-30); CHLORIDE 105 mmol/L (98-107); GLUCOSE 92 mg/dL (75-110); POTASSIUM 4.1 mmol/L (3.6-5.0); TOTAL PROTEIN 7.5 g/dL (6.3-8.2)
[2020-03-24] MEDS ORDERED: CEPHALEXIN 500 MG CAPSULE PO ONE (15:44)
[2020-03-24 16:23] VITALS: BP 124/78
== END 2020-03-24 16:21 | disposition home or self-care (01) ==
LOC: ER 09:58
DX: O23.40 Unspecified infection of urinary tract in pregnancy, unspecified trimester (principal); O26.899 Other specified pregnancy related conditions, unspecified trimester; R10.9 Unspecified abdominal pain; O99.891 Other specified diseases and conditions complicating pregnancy; M54.5 Low back pain; O99.519 Diseases of the respiratory system complicating pregnancy, unspecified trimester; J45.909 Unspecified asthma, uncomplicated; Z79.899 Other long term (current) drug therapy; Z79.51 Long term (current) use of inhaled steroids; Z88.2 Allergy status to sulfonamides; Z88.8 Allergy status to other drugs, medicaments and biological substances; Z91.041 Radiographic dye allergy status; Z3A.00 Weeks of gestation of pregnancy not specified
CPT/HCPCS: 36415; 76770; 80053; 81001; 81025; 83690; 84702; 85025; 99284

== ENCOUNTER 2020-03-28 08:37 | Emergency (ER) | payer OTHER ==
[2020-03-28 08:55] VITALS: BP 124/85
--- NOTE | 2020-03-28 09:57 | ER Document Report ---
ED General - General Chief Complaint: Abnormal Lab Results Stated Complaint: FOLLOW UP/HCG LABS Time Seen by Provider: 03/28/20 09:06 Primary Care Provider: LEANNA POLANCO PA [Primary Care Provider] - Follow up as needed Mode of Arrival: Ambulatory Information source: Patient Notes: This 34-year-old woman presents to the emergency department with a history of seen in the emergency department 3 days ago with urinary tract infection and a positive test. Her symptoms right flank pain has improved while taking the antibiotics. Serum quantitative hCG was 250 on her previous visit. The patient has returned today for a repeat quantitative hCG. TRAVEL OUTSIDE OF THE [place] IN LAST 30 DAYS: No - Related Data Allergies/Adverse Reactions: Sulfa (Sulfonamide Antibiotics) Allergy (Intermediate, Verified 03/24/20 10:43) rash aspirin Allergy (Verified 03/24/20 10:43) ibuprofen Allergy (Verified 03/24/20 10:43) Iodinated Contrast Media [IV Dye, Iodine Containing] Allergy (Verified 03/24/20 10:43) Past Medical History - Social History Smoking Status: Unknown if Ever Smoked Family History: Reviewed & Not Pertinent - Past Medical History Cardiac Medical History: Denies: Hx Heart Attack, Hx Hypertension Pulmonary Medical History: Reports: Hx Asthma Neurological Medical History: Denies: Hx Cerebrovascular Accident, Hx Seizures Renal/ Medical History: Denies: Hx Peritoneal Dialysis GI Medical History: Denies: Hx Hepatitis, Hx Hiatal Hernia, Hx Ulcer Psychiatric Medical History: Reports: Hx Anxiety, Hx Depression - anger issues Infectious Medical History: Denies: Hx Hepatitis Past Surgical History: Reports: Hx Breast Surgery - augmentation, Hx Oral Surgery, Hx Tonsillectomy - adenoids. Denies: Hx Hysterectomy, Hx Mastectomy, Hx Open Heart Surgery, Hx Pacemaker - Immunizations Immunizations up to date: Yes Hx Diphtheria, Pertussis, Tetanus Vaccination: Yes Review of Systems - Review of Systems Notes: Constitutional: Negative for fever. HENT: Negative for sore throat. Eyes: Negative for visual changes. Cardiovascular: Negative for chest pain. Respiratory: Negative for shortness of breath. Gastrointestinal: Negative for abdominal pain, vomiting or diarrhea. Genitourinary: See HPI Musculoskeletal: Negative for back pain. Skin: Negative for rash. Neurological: Negative for headaches, weakness or numbness. 10 point ROS negative except as marked above and in HPI. Constitutional: No symptoms reported EENT: No symptoms reported Cardiovascular: No symptoms reported Respiratory: No symptoms reported Gastrointestinal: No symptoms reported Genitourinary: No symptoms reported Female Genitourinary: No symptoms reported Musculoskeletal: No symptoms reported Skin: No symptoms reported Hematologic/Lymphatic: No symptoms reported Neurological/Psychological: No symptoms reported Physical Exam - Vital signs Vitals: Temp Pulse Resp BP Pulse Ox 97.6 F 97 16 124/85 100 03/28/20 08:54 03/28/20 08:54 03/28/20 08:54 03/28/20 08:54 03/28/20 08:54 - Notes Notes: PHYSICAL EXAMINATION: Physical Exam: General: Well-nourished well-developed female in no acute distress HEENT: NC/AT, pupils equal round and reactive to light, MM moist,nares clear, oropharynx clear, airway patent Neck: supple, no adenopathy, no masses. Good range of motion Lungs: clear, no wheezing, no rales no rhonchi CVS: Regular rate and rhythm no murmur gallop or rub Abdomen: Soft, active, nontender, no masses, no hepatosplenomegaly Ext: No edema, clubbing or cyanosis. Neuro: Alert and responsive, moving all 4 extremities on command Course - Vital Signs Vital signs: Temp Pulse Resp BP Pulse Ox 97.6 F 97 16 124/85 100 03/28/20 08:54 03/28/20 08:54 03/28/20 08:54 03/28/20 08:54 03/28/20 08:54 - Laboratory Results Laboratory Results Interpreted: 03/28/20 08:50 Beta HCG, Quant 1258.30 H 03/29/20 15:15 I have reviewed laboratory data and used this information for the treatment decisions regarding the patient. Critical Laboratory Results Reviewed: No Critical Results - Radiology Results Critical Radiology Results Reviewed: No Critical Results Discharge - Discharge Clinical Impression: First trimester Condition: Good Disposition: HOME, SELF-CARE Instructions: ([facility]) Additional Instructions: You are seen today for a repeat beta hCG, the results of the findings suggest that you have which is developing for normal change in the beta-hCG. Please follow-up with your [employer] COACH or primary physician for care. You may begin vitamins and follow-up as needed. HOME CARE INSTRUCTIONS & INFORMATION: Thank you for choosing us for your medical needs. We hope you're satisfied with the care you received. After you leave, you must properly care for your problem and, at the same time, observe its progress. Any condition can change. Some illnesses can change rapidly over hours or days. If your condition worsens, return to the Emergency Department or see your physician promptly. ABOUT YOUR X-RAYS AND EKG'S: If you had an EKG or X-rays taken, they have been read by the Emergency Physician. The X-rays and EKG's will also be read by a Radiologist or [employer] within 24 hours. If discrepancies are noted, you will be notified by telephone. Please be certain the ED has a correct telephone number & address where you can be reached. Also, realize that some fractures or abnormalities do not show up on initial X-rays. If your symptoms continue, see your physician. ABOUT YOUR LABORATORY TEST: If you had laboratory tests, the results have been reviewed by the Emergency Physician. Some test results (for example cultures) may not be available for several days. You will be contacted if any test result shows you need additional treatment. Please be certain the ED has a correct telephone number and address where you can be reached. ABOUT YOUR MEDICATIONS: You will receive instructions on how to take your medicine on the prescription label you receive. Additional information may be provided by the Pharmacy. If you have questions afterwards, call the ED for clarification or further instructions. Some prescribed medications may cause drowsiness. Do not perform tasks such as driving a car or operating machinery without consulting your Pharmacist. If you feel you need a refill of pain medication, your condition will need re-evaluation. Please do not call for a refill of any medication. ABOUT YOUR SIGNATURE: Signature of this document acknowledges to followin. Understanding that you received emergency treatment and that you may be released before al medical problems are known or treated. Please be certain the ED has a correct phone number & address where you can be reached. 2. Acknowledgement that you will arrange for follow-up care as recommended. 3. Authorization for the Emergency Physician to provide information to your follow-up Physician in order to maximize your care. AT ANY TIME, IF YOUR SYMPTOMS CHANGE SIGNIFICANTLY OR WORSEN OR YOU DEVELOP NEW SYMPTOMS, RETURN TO THE EMERGENCY DEPARTMENT IMMEDIATELY FOR RE-EVALUATION. OUR GOAL IS TO PROVIDE EXCELLENT MEDICAL CARE! WE HOPE THAT WE HAVE MET YOUR EXPECTATIONS DURING YOUR EMERGENCY DEPARTMENT VISIT AND THAT YOU FEEL YOU HAVE RECEIVED EXCELLENT CARE! Referrals: LEANNA POLANCO PA [Primary Care Provider] - Follow up as needed
== END 2020-03-28 10:03 | disposition home or self-care (01) ==
LOC: ER 08:37
DX: O23.41 Unspecified infection of urinary tract in pregnancy, first trimester (principal); O99.511 Diseases of the respiratory system complicating pregnancy, first trimester; J45.909 Unspecified asthma, uncomplicated; Z3A.00 Weeks of gestation of pregnancy not specified; Z88.2 Allergy status to sulfonamides; Z88.8 Allergy status to other drugs, medicaments and biological substances; Z91.041 Radiographic dye allergy status
CPT/HCPCS: 36415; 84702; 99283

== ENCOUNTER 2020-04-03 21:10 | Emergency (ER) | payer OTHER ==
--- NOTE | 2020-04-03 21:28 | ER Document Report ---
ED Medical Screen (RME) - General Chief Complaint: Abdominal Cramping Stated Complaint: CRAMPING,5 WEEKS Time Seen by Provider: 04/03/20 21:21 Primary Care Provider: LEANNA POLANCO PA [Primary Care Provider] - Follow up as needed Mode of Arrival: Ambulatory Information source: Patient Notes: HPI; 34-week 3 para 2 female presents the emergency room complaining of abdominal cramping and spotting for the past 2 weeks. States is gotten worse tonight. Positive test in the emergency room here on 03/24 had a repeat quant 2 days later that had gone from 2 50-12 58. She has not had any OB care as of yet. States the spotting and cramping got worse tonight. Denies any nausea, vomiting. PE: Alert and oriented x3. Lungs: Clear to auscultation without rales, rhonchi, wheezes. Heart: Regular rate rhythm without murmurs, rubs, gallops. I have greeted and performed a rapid initial assessment of this patient. A comprehensive ED assessment and evaluation of the patient, analysis of test results and completion of the medical decision making process will be conducted by additional ED providers. I have specifically instructed the patient or family members with the patient to immediately return to any nursing staff should anything change in the patient's condition or with their chief complaint. TRAVEL OUTSIDE OF THE [place] IN LAST 30 DAYS: No - Related Data Allergies/Adverse Reactions: Sulfa (Sulfonamide Antibiotics) Allergy (Intermediate, Verified 03/24/20 10:43) rash aspirin Allergy (Verified 03/24/20 10:43) ibuprofen Allergy (Verified 03/24/20 10:43) Iodinated Contrast Media [IV Dye, Iodine Containing] Allergy (Verified 03/24/20 10:43) Past Medical History - Social History Family history: Reviewed & Not Pertinent - Past Medical History Cardiac Medical History: Denies: Hx Heart Attack, Hx Hypertension Pulmonary Medical History: Reports: Hx Asthma Neurological Medical History: Denies: Hx Cerebrovascular Accident, Hx Seizures Renal/ Medical History: Denies: Hx Peritoneal Dialysis GI Medical History: Denies: Hx Hepatitis, Hx Hiatal Hernia, Hx Ulcer Psychiatric Medical History: Reports: Hx Anxiety, Hx Depression - anger issues Infectious Medical History: Denies: Hx Hepatitis Past Surgical History: Reports: Hx Breast Surgery - augmentation, Hx Oral Surgery, Hx Tonsillectomy - adenoids. Denies: Hx Hysterectomy, Hx Mastectomy, Hx Open Heart Surgery, Hx Pacemaker - Immunizations Immunizations up to date: Yes Hx Diphtheria, Pertussis, Tetanus Vaccination: Yes Physical Exam - Vital signs Vitals: Temp Pulse Resp BP Pulse Ox 97.8 F 97 16 136/74 H 97 04/03/20 21:20 04/03/20 21:20 04/03/20 21:20 04/03/20 21:20 04/03/20 21:20 Course - Vital Signs Vital signs: Temp Pulse Resp BP Pulse Ox 97.8 F 97 16 136/74 H 97 04/03/20 21:20 04/03/20 21:20 04/03/20 21:20 04/03/20 21:20 04/03/20 21:20 Doctor's Discharge - Discharge Referrals: LEANNA POLANCO PA [Primary Care Provider] - Follow up as needed
[2020-04-03 21:57] LABS: ABSOLUTE EOSINOPHILS # (AUTO) 0.7 10^3/uL (0.0-0.6); ABSOLUTE LYMPHOCYTES (AUTO) 1.9 10^3/uL (0.5-4.7); ABSOLUTE MONOCYTES (AUTO) 0.5 10^3/uL (0.1-1.4); ABSOLUTE NEUT (AUTO) 3.8 10^3/uL (1.7-8.2); BASOPHILS % (AUTO) 0.7 % (0-2); HEMOGLOBIN 13.1 g/dL (12.0-15.5); LYMPHOCYTES % (AUTO) 27.4 % (13-45); MEAN CORPUSCULAR HEMOGLOBIN 31.5 pg (27.0-33.4); MEAN CORPUSCULAR HGB CONC 36.4 g/dL (32.0-36.0); MEAN CORPUSCULAR VOLUME 87 fl (80-97); MONOCYTES % (AUTO) 7.5 % (3-13); PLATELET COUNT 252 10^3/uL (150-450); RED BLOOD COUNT 4.15 10^6/uL (3.72-5.28); RED CELL DISTRIBUTION WIDTH 12.8 % (11.5-14.0); SEGMENTED NEUTROPHILS % (AUTO) 54.4 % (42-78); TOTAL CELLS COUNTED % (AUTO) 100 %; WHITE BLOOD COUNT 6.9 10^3/uL (4.0-10.5)
[2020-04-03 21:58] LABS: APPEARANCE,URINE SLIGHTLY-CLOUDY; BILIRUBIN,URINE NEGATIVE (NEGATIVE); COLOR,URINE YELLOW; GLUCOSE, URINE NEGATIVE (NEGATIVE); KETONES,URINE NEGATIVE (NEGATIVE); LEUKOCYTE ESTERASE,URINE SMALL (NEGATIVE); NITRITE,URINE NEGATIVE (NEGATIVE); PROTEIN,URINE NEGATIVE (NEGATIVE); UROBILINOGEN,URINE NEGATIVE mg/dL (<2.0)
[2020-04-03 22:39] LABS: ALBUMIN 4.2 g/dL (3.5-5.0); ALKALINE PHOSPHATASE 38 U/L (38-126); ANION GAP 7 (5-19); ASPARTATE AMINO TRANSFERASE 23 U/L (14-36); BILIRUBIN,TOTAL 0.4 mg/dL (0.2-1.3); BLOOD UREA NITROGEN 18 mg/dL (7-20); CALCIUM 9.4 mg/dL (8.4-10.2); CARBON DIOXIDE 28 mmol/L (22-30); CHLORIDE 103 mmol/L (98-107); GLUCOSE 101 mg/dL (75-110); TOTAL PROTEIN 7.1 g/dL (6.3-8.2)
--- NOTE | 2020-04-03 22:59 | RADIOLOGY REPORT (SQ) ---
EXAM: U/S OB TRANSVAG W/DOPPLER CLINICAL INDICATION: Cramping. COMPARISON: None. TECHNIQUE: First trimester OB ultrasound was performed. FINDINGS: Uterus: The uterus is anteverted. It measures 9.2 x 4.9 x 5.9 cm. Nabothian cyst is present in the cervix. This measures 0.7 x 0.7 x 1.2 cm.. Endometrium measures 12 mm. Cervix is closed and measures 1.8 cm. In the mid uterus is a round gestational sac which measures 7.2 mm. A small yolk sac is seen. No pole. No cardiac activity. Ovaries and adnexa: Left ovary measures 2.4 x 3.0 x 2.6 cm. Attempts were made to assess the vessels but Doppler waveform and color-flow are not clearly present. The right ovary measures 1.7 x 2.7 x 2.0 cm. Again vascular assessment was inadequate. No adnexal mass. No free fluid. IMPRESSION: Small gestational sac is identified within the endometrium. This measures 7.2 mm and correlates with an age of five weeks three days. No pole. No cardiac activity. Viability is indeterminate. No free fluid. No adnexal mass.
[2020-04-04] MEDS ORDERED: ACETAMINOPHEN 325 MG TABLET PO ONE (00:37)
--- NOTE | 2020-04-04 02:25 | ER Document Report ---
ED General - General Chief Complaint: Abdominal Cramping Stated Complaint: CRAMPING,5 WEEKS Time Seen by Provider: 04/03/20 21:21 Primary Care Provider: LEANNA POLANCO PA [Primary Care Provider] - Follow up as needed Mode of Arrival: Ambulatory TRAVEL OUTSIDE OF THE [place] IN LAST 30 DAYS: No - Related Data Allergies/Adverse Reactions: Sulfa (Sulfonamide Antibiotics) Allergy (Intermediate, Verified 03/24/20 10:43) rash aspirin Allergy (Verified 03/24/20 10:43) ibuprofen Allergy (Verified 03/24/20 10:43) Iodinated Contrast Media [IV Dye, Iodine Containing] Allergy (Verified 03/24/20 10:43) Past Medical History - General Information source: Patient - Social History Smoking Status: Never Smoker Chew tobacco use (# tins/day): No Frequency of alcohol use: None Drug Abuse: None Lives with: Family Family History: Reviewed & Not Pertinent Patient has suicidal ideation: No Patient has homicidal ideation: No - Past Medical History Cardiac Medical History: Denies: Hx Heart Attack, Hx Hypertension Pulmonary Medical History: Reports: Hx Asthma EENT Medical History: Reports: None Neurological Medical History: Denies: Hx Cerebrovascular Accident, Hx Seizures Endocrine Medical History: Reports: None Renal/ Medical History: Denies: Hx Peritoneal Dialysis Malignancy Medical History: Reports: None GI Medical History: Denies: Hx Hepatitis, Hx Hiatal Hernia, Hx Ulcer Musculoskeletal Medical History: Reports None Skin Medical History: Reports None Psychiatric Medical History: Reports: Hx Anxiety, Hx Depression - anger issues Traumatic Medical History: Reports: None Infectious Medical History: Denies: Hx Hepatitis Past Surgical History: Reports: Hx Breast Surgery - augmentation, Hx Oral Surgery, Hx Tonsillectomy - adenoids. Denies: Hx Hysterectomy, Hx Mastectomy, Hx Open Heart Surgery, Hx Pacemaker - Immunizations Immunizations up to date: Yes Hx Diphtheria, Pertussis, Tetanus Vaccination: Yes Review of Systems - Review of Systems Notes: Constitutional: Negative for fever. HENT: Negative for sore throat. Eyes: Negative for visual changes. Cardiovascular: Negative for chest pain. Respiratory: Negative for shortness of breath. Gastrointestinal: Positive for lower abdominal cramping. Negative for vomiting or diarrhea. Genitourinary: Negative for dysuria. Positive for vaginal bleeding. Musculoskeletal: Negative for back pain. Skin: Negative for rash. Neurological: Negative for headaches, weakness or numbness. 10 point ROS negative except as marked above and in HPI. Physical Exam - Vital signs Vitals: Temp Pulse Resp BP Pulse Ox 97.8 F 97 16 136/74 H 97 04/03/20 21:20 04/03/20 21:20 04/03/20 21:20 04/03/20 21:20 04/03/20 21:20 - Notes Notes: CONSTITUTIONAL: Well appearing. No acute distress. SKIN: Warm, dry, and intact without rash EYES: Extraocular movements are grossly intact, clear conjunctiva HENT: Normocephalic, atraumatic, moist mucus membranes NECK: No obvious swelling, normal range of motion PULMONARY: Normal chest rise and fall. CARDIOVASCULAR: Regular rate. Distal extremities are warm and well perfused. ABDOMINAL: Soft, nontender NEUROLOGIC: Normal speech, moves all extremities. MUSCULOSKELETAL: No gross deformities, atraumatic PSYCHIATRIC: Normal mood and affect Course - Re-evaluation Re-evalutation: 04/04/20 02:32 Rechecked patient. Discussed with patient: results, diagnosis, treatment plan, and need for follow-up. She agrees to return to the emergency room in the next 48 hours for a recheck of her hCG if she is unable to follow-up with her [employer] PROCESSING MANAGER. Return to the emergency department warnings were given. All questions and concerns were addressed. The plan is agreed with and understood. Patient is stable and ready for discharge. - Vital Signs Vital signs: Temp Pulse Resp BP Pulse Ox 97.8 F 97 16 136/74 H 97 04/03/20 21:20 04/03/20 21:20 04/03/20 21:20 04/03/20 21:20 04/03/20 21:20 - Laboratory Results Result Diagrams: 04/03/20 21:40 04/03/20 21:40 Laboratory Results Interpreted: 04/03/20 04/03/20 04/03/20 21:40 21:40 21:40 MCHC 36.4 H Eos % (Auto) 10.0 H Absolute Eos (auto) 0.7 H Beta HCG, Quant 1492.60 H Ur Leukocyte Esterase SMALL H Critical Laboratory Results Reviewed: No Critical Results - Radiology Results Critical Radiology Results Reviewed: No Critical Results Discharge - Discharge Clinical Impression: Threatened Condition: Stable Disposition: HOME, SELF-CARE Instructions: Threatened Miscarriage ([facility]) Additional Instructions: Follow-up with your STERILE PROCESSING MANAGER this week. If you are unable to follow-up, return to the emergency room in the next 48 hours for a repeat of your ultrasound and beta-hCG. Forms: Return to Work Referrals: LEANNA POLANCO PA [Primary Care Provider] - Follow up as needed
[2020-04-04 02:38] VITALS: BP 120/67
== END 2020-04-04 02:36 | disposition home or self-care (01) ==
LOC: ER 21:10
DX: O20.0 Threatened abortion (principal); O26.891 Other specified pregnancy related conditions, first trimester; R10.30 Lower abdominal pain, unspecified; O99.511 Diseases of the respiratory system complicating pregnancy, first trimester; J45.909 Unspecified asthma, uncomplicated; Z3A.01 Less than 8 weeks gestation of pregnancy; Z88.2 Allergy status to sulfonamides; Z88.8 Allergy status to other drugs, medicaments and biological substances; Z91.041 Radiographic dye allergy status
CPT/HCPCS: 36415; 76817; 80053; 81001; 84702; 85025; 86900; 86901; 93976; 99284

== ENCOUNTER 2020-04-06 11:12 | Emergency (ER) | payer OTHER ==
--- NOTE | 2020-04-06 12:10 | ER Document Report ---
ED Medical Screen (RME) - General Chief Complaint: Vaginal Bleeding Stated Complaint: VAGINAL BLEEDING Time Seen by Provider: 04/06/20 12:05 Primary Care Provider: LEANNA POLANCO PA [Primary Care Provider] - Follow up as needed Notes: Patient presents complaining of cramping and vaginal bleeding. Patient states that she has had spotting for several days but the cramping started yesterday. Patient states she passed what appeared to be products of conception at home. Patient is about 5 weeks . Patient is requesting to have a repeat quantitative hCG test performed. I have greeted and performed a rapid initial assessment of this patient. A comprehensive ED assessment and evaluation of the patient, analysis of test results and completion of the medical decision making process will be conducted by additional ED providers. TRAVEL OUTSIDE OF THE [place] IN LAST 30 DAYS: No - Related Data Allergies/Adverse Reactions: Sulfa (Sulfonamide Antibiotics) Allergy (Intermediate, Verified 03/24/20 10:43) rash aspirin Allergy (Verified 03/24/20 10:43) ibuprofen Allergy (Verified 03/24/20 10:43) Iodinated Contrast Media [IV Dye, Iodine Containing] Allergy (Verified 03/24/20 10:43) Past Medical History - Social History Family history: Reviewed & Not Pertinent - Past Medical History Cardiac Medical History: Denies: Hx Heart Attack, Hx Hypertension Pulmonary Medical History: Reports: Hx Asthma Neurological Medical History: Denies: Hx Cerebrovascular Accident, Hx Seizures Renal/ Medical History: Denies: Hx Peritoneal Dialysis GI Medical History: Denies: Hx Hepatitis, Hx Hiatal Hernia, Hx Ulcer Psychiatric Medical History: Reports: Hx Anxiety, Hx Depression - anger issues Infectious Medical History: Denies: Hx Hepatitis Past Surgical History: Reports: Hx Breast Surgery - augmentation, Hx Oral Surgery, Hx Tonsillectomy - adenoids. Denies: Hx Hysterectomy, Hx Mastectomy, Hx Open Heart Surgery, Hx Pacemaker - Immunizations Immunizations up to date: Yes Hx Diphtheria, Pertussis, Tetanus Vaccination: Yes Physical Exam - Vital signs Vitals: Temp Pulse Resp BP Pulse Ox 98.2 F 91 16 125/63 96 04/06/20 11:25 04/06/20 11:25 04/06/20 11:25 04/06/20 11:25 04/06/20 11:25 - General General appearance: Appears well, Alert In distress: None - Abdominal Tenderness: Tender - Lower pelvic Course - Vital Signs Vital signs: Temp Pulse Resp BP Pulse Ox 98.2 F 91 16 125/63 96 04/06/20 11:25 04/06/20 11:25 04/06/20 11:25 04/06/20 11:25 04/06/20 11:25 Doctor's Discharge - Discharge Referrals: LEANNA POLANCO PA [Primary Care Provider] - Follow up as needed
[2020-04-06 12:39] LABS: ABSOLUTE EOSINOPHILS # (AUTO) 0.5 10^3/uL (0.0-0.6); ABSOLUTE LYMPHOCYTES (AUTO) 1.3 10^3/uL (0.5-4.7); ABSOLUTE MONOCYTES (AUTO) 0.4 10^3/uL (0.1-1.4); ABSOLUTE NEUT (AUTO) 4.7 10^3/uL (1.7-8.2); BASOPHILS % (AUTO) 0.5 % (0-2); EOSINOPHILS % (AUTO) 6.9 % (0-6); HEMATOCRIT 38.7 % (36.0-47.0); HEMOGLOBIN 13.8 g/dL (12.0-15.5); MEAN CORPUSCULAR HEMOGLOBIN 30.8 pg (27.0-33.4); MEAN CORPUSCULAR HGB CONC 35.8 g/dL (32.0-36.0); MEAN CORPUSCULAR VOLUME 86 fl (80-97); PLATELET COUNT 244 10^3/uL (150-450); RED BLOOD COUNT 4.49 10^6/uL (3.72-5.28); RED CELL DISTRIBUTION WIDTH 12.5 % (11.5-14.0); SEGMENTED NEUTROPHILS % (AUTO) 67.6 % (42-78); TOTAL CELLS COUNTED % (AUTO) 100 %
[2020-04-06 13:00] LABS: ALBUMIN 4.4 g/dL (3.5-5.0); ALKALINE PHOSPHATASE 44 U/L (38-126); ANION GAP 7 (5-19); ASPARTATE AMINO TRANSFERASE 22 U/L (14-36); BILIRUBIN,TOTAL 0.9 mg/dL (0.2-1.3); BLOOD UREA NITROGEN 15 mg/dL (7-20); CALCIUM 9.9 mg/dL (8.4-10.2); CARBON DIOXIDE 28 mmol/L (22-30); CHLORIDE 105 mmol/L (98-107); GLUCOSE 100 mg/dL (75-110); TOTAL PROTEIN 7.4 g/dL (6.3-8.2)
--- NOTE | 2020-04-06 13:13 | ER Document Report ---
Entered by GRAEME ANDREW SCRIBE 04/06/20 1238 Acting as scribe for:MAGGY RUBIO MD ED GI/ - General Chief Complaint: Vaginal Bleeding Stated Complaint: VAGINAL BLEEDING Time Seen by Provider: 04/06/20 12:05 Primary Care Provider: [facility] [Provider Group] - Follow up in 1 week LEANNA POLANCO PA [Primary Care Provider] - Follow up as needed Mode of Arrival: Ambulatory Information source: Patient Notes: This 34 year old female patient who is , approximately x5 weeks presents to the ED today for evaluation of vaginal bleeding related to a possible miscarriage with associated mild abdominal cramping. Patient states that she believes she passed products of conception around 0910 this morning. Patient discloses that she and her significant other have been trying to conceive for the last x2 years and were surprised when she had a positive test during her ED visit on 03/24. The hCG jd from 03/24 (231) to 03/28 (1258), but had minimal rise over the next 6 days. The hCG on her last vis it x3 days ago was only 1492; patient states that she knew then that the wasn't viable. 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 TRAVEL OUTSIDE OF THE [place] IN LAST 30 DAYS: No - Related Data Allergies/Adverse Reactions: Sulfa (Sulfonamide Antibiotics) Allergy (Intermediate, Verified 03/24/20 10:43) rash aspirin Allergy (Verified 03/24/20 10:43) ibuprofen Allergy (Verified 03/24/20 10:43) Iodinated Contrast Media [IV Dye, Iodine Containing] Allergy (Verified 03/24/20 10:43) Past Medical History - General Information source: Patient, [facility] Records - Social History Smoking Status: Never Smoker Cigarette use (# per day): No Chew tobacco use (# tins/day): No Smoking Education Provided: No Occupation: residential service technician Lives with: Family, Spouse/Significant other Family History: Reviewed & Not Pertinent Pulmonary Medical History: Reports: Hx Asthma Psychiatric Medical History: Reports: Hx Anxiety, Hx Depression - anger issues Past Surgical History: Reports: Hx Adenoidectomy, Hx Breast Surgery - augmen tation, Hx Oral Surgery, Hx Tonsillectomy - Immunizations Immunizations up to date: Yes Hx Diphtheria, Pertussis, Tetanus Vaccination: Yes Review of Systems - Review of Systems Constitutional: No symptoms reported EENT: No symptoms reported Cardiovascular: No symptoms reported Respiratory: No symptoms reported Gastrointestinal: See HPI, Abdominal pain Genitourinary: No symptoms reported Female Genitourinary: See HPI, , Vaginal bleeding Musculoskeletal: No symptoms reported Skin: No symptoms reported Hematologic/Lymphatic: No symptoms reported Neurological/Psychological: No symptoms reported -: Yes All other systems reviewed and negative Physical Exam - Vital signs Vitals: Temp Pulse Resp BP Pulse Ox 98.2 F 91 16 125/63 96 04/06/20 11:25 04/06/20 11:25 04/06/20 11:25 04/06/20 11:25 04/06/20 11:25 Interpretation: Normal - General General appearance: Appears well, Alert In distress: None - HEENT Head: Normocephalic, Atraumatic Eyes: Normal Extraocular movements intact: Yes Pupils: PERRL Neck: Normal, Supple - Respiratory Respiratory status: No respiratory distress Chest status: Nontender Breath sounds: Normal Chest palpation: Normal - Cardiovascular Rhythm: Regular Heart sounds: Normal auscultation Murmur: No - Abdominal Inspection: Normal Distension: No distension Bowel sounds: Normal Tenderness: Nontender - Abdomen soft Organomegaly: No organomegaly - Back Back: Normal, Nontender - Extremities General upper extremity: Normal inspection General lower extremity: Normal inspection. No: Edema - Neurological Neuro grossly intact: Yes Orientation: AAOx4 [place] Coma Scale Eye Opening: Spontaneous [place] Coma Scale Verbal: Oriented [place] Coma Scale Motor: Obeys Commands [place] Coma Scale Total: 15 - Psychological Associated symptoms: Normal affect, Normal mood - Skin Skin Temperature: Warm Skin Moisture: Dry Skin Color: Normal Course - Re-evaluation Re-evalutation: 04/06/20 13:20 The hCG today is 1161.3, which is lower than it was 9 days ago. This, along with the patient's history is consistent with a miscarriage. - Vital Signs Vital signs: Temp Pulse Resp BP Pulse Ox 98.3 F 86 16 122/64 99 04/06/20 13:29 04/06/20 13:29 04/06/20 13:29 04/06/20 13:29 04/06/20 13:29 - Laboratory Results Result Diagrams: 04/06/20 12:25 04/06/20 12:25 Laboratory Results Interpreted: 04/06/20 04/06/20 12:25 12:25 Eos % (Auto) 6.9 H Beta HCG, Quant 1161.30 H Critical Laboratory Results Reviewed: No Critical Results - Radiology Results Critical Radiology Results Reviewed: No Critical Results Discharge - Discharge Clinical Impression: Miscarriage Condition: Stable Disposition: HOME, SELF-CARE Additional Instructions: Miscarriage You have had a miscarriage (medically called a "spontaneous "). The miscarriage occurred because the fetus did not develop normally. There is nothing you did to cause it, and nothing you could have done to prevent it. About one in four ends in miscarriage. You should rest in bed for two or three days. As there is some risk of infection of the uterus, you should not have intercourse for one week (or until okayed by your physician). You might not have a period for six to eight weeks. You should not become again for at least three months -- the uterus requires time to get back to normal. Call the doctor or return for re-examination if there is heavy or persistent vaginal bleeding, fever, foul discharge, continued cramping pains, or abdominal pain. [facility] for recheck. RETURN TO THE EMERGENCY ROOM IF ANY NEW OR WORSENING SYMPTOMS. Forms: Return to Work Referrals: LEANNA POLANCO PA [Primary Care Provider] - Follow up as needed [facility] [Provider Group] - Follow up in 1 week I personally performed the services described in the documentation, reviewed and edited the documentation which was dictated to the scribe in my presence, and it accurately records my words and actions.
[2020-04-06] MEDS ORDERED: HYDROCODONE/ACETAMINOPHEN 5-325 MG (6 TAB/ER DISP) PO PRN (13:23)
[2020-04-06 13:30] VITALS: BP 122/64
== END 2020-04-06 13:29 | disposition home or self-care (01) ==
LOC: ER 11:12
DX: O03.9 Complete or unspecified spontaneous abortion without complication (principal); Z3A.01 Less than 8 weeks gestation of pregnancy; Z88.6 Allergy status to analgesic agent; Z88.2 Allergy status to sulfonamides
CPT/HCPCS: 36415; 80053; 84702; 85025; 99283